=== PATIENT | female | born 1980 | race Caucasian/White ===

== ENCOUNTER 2016-04-12 19:02 | Emergency (ER) | payer MEDICAID, OTHER ==
[~2016-04-12] VITALS: Ht 154.9 cm; Wt 69.0 kg
[2016-04-12 19:14] VITALS: Ht 154.9 cm; Wt 69.0 kg
[2016-04-12 19:47] LABS: URINE BLOOD (Dip) POC 2+ (NEGATIVE)
[2016-04-12] MEDS ORDERED: ACETAMINOPHEN 325 MG TAB PO ONE (20:00)
--- NOTE | 2016-04-12 20:34 | RADRPT ---
PROCEDURE: US Lower extremity Venous. CLINICAL INDICATION: Left leg swelling TECHNIQUE: Multiple sonographic images of the left lower extremity deep venous system was obtained utilizing grayscale, color-flow, compressive sonography and doppler imaging with augmentation. The images were reviewed on a PACS workstation. COMPARISON: None. FINDINGS: There is normal compressibility and flow within the left common femoral, superficial femoral, building attendant ior tibial, peroneal and popliteal veins. RPTAT: AA IMPRESSION: No sonographic evidence for deep venous thrombosis. .Barney Jameson MD, MD Date Time Electronically viewed and signed by .Barney Jameson MD, on 04/12/2016 20:34 .S/
[2016-04-12 21:39] VITALS: BP 106/59; PULSE 73; RESP 18; TEMP 98.5
--- NOTE | 2016-04-12 21:42 | ERD ---
ER Documentation Chief Complaint Date/Time DATE: 04/12/16 TIME: 21:39 Chief Complaint right leg pain hx of dvt on lovenox sq daily, c/o back pain too 13 wks preg HPI Patient is a 35-year-old female with asthma who presents with headache and left- sided leg pain. She says that her headache started over one month ago. For the past 3 days she has had left-sided leg pain and left-sided back pain in the lower back. She called her primary doctor to go to the ER. She is 13 weeks . She has no vaginal bleeding however and no abdominal pain. She says that she is on Lovenox because she was told she has a "blood clot in her brain" . However she denies ever getting a CT scan of the brain or MRI of the brain to confirm this. She says that she has not had a DVT in her lower extremities either. She says that she is on Lovenox because the doctor told her that "she has a blood clot in her brain" and that this was found on a "blood test that they jesus from her arm". Upon review of old medical records this is the patient 's fifth visit to the ER since 2009. ROS All systems reviewed and are negative except as per history of present illness. Medications Home Meds Reported Medications [None] No Conflict Check 07/20/09 Allergies Allergies: Coded Allergies: No Known Allergies (Verified Allergy, Mild, 07/20/09) PMhx/Soc History of Surgery: Yes (RIGHT AXILLA CYST REMOVAL) Hx Neurological Disorder: No Hx Respiratory Disorders: No Hx Cardiac Disorders: No Hx Miscellaneous Medical Probl: No Hx Alcohol Use: No Hx Substance Use: No Hx Tobacco Use: No FmHx Family History: diabetes Physical Exam Vitals Vital Signs Date Time Temp Pulse Resp B/P Pulse Ox O2 Delivery O2 Flow Rate FiO2 04/12/16 19:14 97.7 76 20 114/68 100 Physical Exam Const: No acute distress Head: Atraumatic Eyes: Normal Conjunctiva ENT: Normal External Ears, Nose and Mouth. Neck: Full range of motion..~ No meningismus. Resp: Clear to auscultation bilaterally Cardio: Regular rate and rhythm, no murmurs Abd: Soft, non tender, non distended. Normal bowel sounds Skin: No petechiae or rashes Back: No midline or flank tenderness Ext: No obvious leg swelling on the left compared to the right Neur: Awake and alert, cranial nerves II through XII are intact, strength is 5 out of 5 in all 4 extremities, no slurred speech Psych: Normal Mood and Affect Results 24 hrs Laboratory Tests Test 04/12/16 19:47 Bedside Urine Blood 2+ Bedside Urine Glucose (UA) Negative Bedside Urine Ketones (LAB) Negative Bedside Urine Leukocyte Esterase (L Negative Bedside Urine Nitrite (LAB) Negative Bedside Urine Protein (LAB) Negative Bedside Urine pH (LAB) 5.5 Current Medications Medications (Trade) Dose Ordered Sig/Hill Route PRN Reason Start Time Stop Time Status Last Admin Dose Admin Acetaminophen (Tylenol Tab) 650 mg ONCE ONCE PO 04/12/16 20:00 04/12/16 20:01 DC 04/12/16 19:44 Procedures/MDM Left lower extremity ultrasound negative per radiology. Patient refused CT scan of the brain and she was concerned about the risk of radiation. Patient is a 35-year-old female presents with headache and left-sided leg pain. She has had headache for over one month. Her lower extremity ultrasound shows no sign of DVT to the left leg. I want to image the brain as she said that she has never had imaging of the brain and despite this she was placed on Lovenox by her clinic. I am unclear as to why they would have started her on Lovenox without a diagnosis of true DVT either in the lower extremities or some sort of blood clot in her brain. However she is refusing CT scan of the brain at this time. Given the fact that she is already taking Lovenox she should continue this but I did recommend very close follow-up with her primary doctor within 24-48 hours. I do not believe that she requires further workup or admission to the hospital at this time and her neurologic exam is normal. She has no abdominal pain or vaginal bleeding and I am not concerned about imaging her abdomen at this time. Departure Diagnosis: Primary Impression: Headache Headache type: unspecified Headache chronicity pattern: acute headache Intractability: not intractable Qualified Code: R51 - Acute nonintractable headache, unspecified headache type Additional Impression: Pain of left leg Condition: Fair Patient Instructions: Self-Care for Headaches, Possible Causes of Low Back or Leg Pain Referrals: [facility] Additional Instructions: Llame al doctor RALPH y iain megan ORIN PARA DENTRO DE 1-2 FERNANDEZ.Dgale a la secretaria que nosotros le instruimos hacer esta orin.Avise o llame si machado condicin se empeora antes de la orin. Regresa aqui si peor o no mejor. IZABEL TARIQ MD Apr 12, 2016 21:42
== END 2016-04-12 21:39 | disposition home or self-care (01) ==
LOC: FTE 19:02
DX: O99.89 Other specified diseases and conditions complicating pregnancy, childbirth and the puerperium (principal); R51 Headache; M79.605 Pain in left leg; Z79.01 Long term (current) use of anticoagulants; Z3A.13 13 weeks gestation of pregnancy
CPT/HCPCS: 81003; 93971

== ENCOUNTER 2016-07-19 20:37 | Outpatient (CLI) | payer MEDICAID ==
[~2016-07-19] VITALS: Ht 154.9 cm; Wt 73.1 kg
[~2016-07-19 20:37] MED LIST: ACET325T33 PO; DENIES
[2016-07-19 21:00] LABS: ADD UMIC YES; URINE BILIRUBIN (Dip) NEGATIVE (NEGATIVE); URINE BLOOD (Dip) TRACE (NEGATIVE); URINE COLOR LT. YELLOW (YELLOW); URINE GLUCOSE (Dip) NEGATIVE (NEGATIVE); URINE KETONES (Dip) NEGATIVE (NEGATIVE); URINE LEUKOCYTE ESTERASE (Dip) NEGATIVE (NEGATIVE); URINE NITRITE (Dip) NEGATIVE (NEGATIVE); URINE TOTAL PROTEIN (Dip) NEGATIVE (NEGATIVE); URINE UROBILINOGEN (Dip) 0.2 E.U./dL (0.1-1.0)
[2016-07-19 21:12] LABS: BACTERIA,URINE FEW; SQUAMOUS EPITHELIAL CELL,UR MODERATE
[2016-07-19 21:16] VITALS: Ht 154.9 cm; Wt 73.1 kg
[2016-07-19] MEDS ORDERED: PREN-93 PO (21:18)
[2016-07-19] MEDS ORDERED: ACET500C5 PO (21:18)
[2016-07-19] MEDS ORDERED: ENOX100D2 SC (21:18)
--- NOTE | 2016-07-19 21:43 | CONS ---
Date/Time of Note Date/Time of Note DATE: 07/19/16 TIME: 21:39 Assessment/Plan Assessment/Plan Additional Assessment/Plan No e/o ptl or preeclampsia. Discharge home with precautions. F/u with OB. Consultation Date/Type/Reason Admit Date/Time Hx of Present Illness at 27.4 weeks with abdominal/pelvic pain and cramping. Reports pain is constant, worse with walking. +dysuria. Also reports JENNINGS, tried taking tylenol. Denies LOF, VB. +FM. Getting PNC, c/b clotting disorder?, taking Lovenox and baby aspirin. Past Medical History Clotting disorder, asthma Past Surgical History Past Surgical Hx: no surgical history Social History Other Social History Denies habits. Exam/Review of Systems Exam Gen: NAD HEENT: NCAT CV: RRR Pulm: CTAB Abd: gravid, NT Back: no CVAT Ext: NT FHT: reassuring [place]: one UC Results Results 24 hrs Laboratory Tests Test 07/19/16 20:40 Urine Color LT. YELLOW Urine Clarity CLEAR Urine pH 6.0 Urine Specific [place] 1.010 Urine Ketones NEGATIVE Urine Nitrite NEGATIVE Urine Bilirubin NEGATIVE Urine Urobilinogen 0.2 E.U./dL Urine Leukocyte Esterase NEGATIVE Urine Microscopic RBC 2-5 Urine Microscopic WBC 0-2 Urine Squamous Epithelial Cells MODERATE Urine Bacteria FEW Urine Hemoglobin TRACE Urine Glucose NEGATIVE Urine Total Protein NEGATIVE SELENE MANCILLA Jul 19, 2016 21:43
== END 2016-07-19 21:54 | disposition home or self-care (01) ==
LOC: OBT 20:37 → L-D 20:37 → OBT 21:54
PROVIDERS: ATTEND Obstetrics & Gynecology
DX: O26.892 Other specified pregnancy related conditions, second trimester (principal); R10.9 Unspecified abdominal pain; R10.2 Pelvic and perineal pain; R25.2 Cramp and spasm; O99.112 Other diseases of the blood and blood-forming organs and certain disorders involving the immune mechanism complicating pregnancy, second trimester; D68.9 Coagulation defect, unspecified; Z3A.27 27 weeks gestation of pregnancy; O99.512 Diseases of the respiratory system complicating pregnancy, second trimester; J45.909 Unspecified asthma, uncomplicated
CPT/HCPCS: 81001; Z7500; 81003; G0463

== ENCOUNTER 2016-08-21 10:36 | Outpatient (CLI) | payer MEDICAID ==
[~2016-08-21] VITALS: Ht 152.4 cm; Wt 73.8 kg
[~2016-08-21 10:36] MED LIST changes: +ACET500C5 PO; +ENOX100D2 SC; +PREN-93 PO
[2016-08-21] MEDS ORDERED: ALBU18HF INHALATION (10:55)
[2016-08-21] MEDS ORDERED: ENOX40DI14 SC (10:55)
[2016-08-21] MEDS ORDERED: ASPI-664 PO (10:55)
[2016-08-21 10:56] VITALS: BP 101/55; PULSE 86; RESP 18; Ht 152.4 cm; Wt 73.8 kg
--- NOTE | 2016-08-21 11:20 | TRIAGE ---
OB Triage Datetime Report Generated by CPN: 08/21/2016 11:20 Datetime: 08/21/2016 10:49 Labor Evaluation Monitor Mode: External Heart Rate Monitor Mode: External US Datetime: 08/21/2016 10:45 Assessment Type: Triage Maternal Assessment Level of Consciousness: Fully Conscious DTR's/Clonus: DTRs 2+; No Clonus Headache: Denies Blurred Vision: No Respiratory Effort: Unlabored; Regular Rhythm; Equal Expansion Nausea/Vomiting: Denies RUQ Epigastric Pain: Denies Facial Edema: None Fall Risk Assessment History of Falling: (0) No Secondary Diagnosis: (0) No Ambulatory Aid: (0) Bedrest/Nurse Assist IV Therapy: (0) No Gait: (0) Normal/Bedrest/Immobile Mental Status: (0) Oriented to Own Ability Fall Score: 0 Fall Risk Score Definition: No Risk: No action required Datetime: 08/21/2016 10:43 Time of Arrival: 08/21/2016 10:28 EGA: 32.2 Arrived By: Ambulatory Arrived From: Office Chief Complaint: C/O SOB, CP Movement: Present Contractions: Denies/Absent Rupture of Membranes: Denies Vaginal Bleeding: None Vaginal Discharge: Denies Recent Sexual Intercouse: Denies Abdominal Trauma: Not Applicable Patient Complaints: Cough; Shortness of Breath Time Provider Notified: 08/21/2016 10:45 Provider Notified: [facility] Initial Plan: NST Datetime: 07/19/2016 20:58 Stage of : OB Triage Assessment Type: Triage Maternal Assessment Level of Consciousness: Fully Conscious Headache: Denies Blurred Vision: No Respiratory Effort: Unlabored; Regular Rhythm; Equal Expansion Breath Sounds, Left: Clear and Equal Breath Sounds, Right: Clear and Equal Nausea/Vomiting: Denies RUQ Epigastric Pain: Denies Lower Extremities Edema: None Upper Extremities Edema: None Facial Edema: None Fall Risk Assessment History of Falling: (0) No Secondary Diagnosis: (0) No Ambulatory Aid: (0) Bedrest/Nurse Assist IV Therapy: (0) No Gait: (0) Normal/Bedrest/Immobile Mental Status: (0) Oriented to Own Ability Fall Score: 0 Fall Risk Score Definition: No Risk: No action required Datetime: 07/19/2016 20:57 Time of Arrival: 07/19/2016 20:26 EGA: 27.4 Arrived By: Ambulatory Arrived From: Home Chief Complaint: ABD PAIN X2DAYS Movement: Present Contractions: Denies/Absent Rupture of Membranes: Denies Vaginal Discharge: Denies Recent Sexual Intercouse: Denies Abdominal Trauma: Not Applicable Patient Complaints: Other Time Provider Notified: 07/19/2016 20:35 Provider Notified: [facility] Initial Plan: EFM,UA Datetime: 07/19/2016 20:52 Temperature Route: Oral Datetime: 07/19/2016 20:30 Stage of : OB Triage
[2016-08-21] MEDS ORDERED: ACET325T33 PO (12:33)
[2016-08-21] MEDS ORDERED: PRED20TA PO (12:33)
[2016-08-21] MEDS ORDERED: UDROBDM PO (12:33)
== END 2016-08-21 11:30 | disposition home or self-care (01) ==
LOC: OBT 10:36 → L-D 10:37 → OBT 11:30
PROVIDERS: ATTEND Obstetrics & Gynecology
DX: O26.893 Other specified pregnancy related conditions, third trimester (principal); R07.9 Chest pain, unspecified; R06.02 Shortness of breath; O09.523 Supervision of elderly multigravida, third trimester; Z3A.32 32 weeks gestation of pregnancy
CPT/HCPCS: G0463

== ENCOUNTER 2016-08-21 11:41 | Emergency (ER) | payer MEDICAID ==
[~2016-08-21] VITALS: Ht 157.5 cm; Wt 73.0 kg
[~2016-08-21 11:41] MED LIST changes: +ALBU18HF INHALATION; +ASPI-664 PO; +ENOX40DI14 SC
[2016-08-21 11:45] VITALS: Ht 157.5 cm; Wt 73.0 kg
[2016-08-21] MEDS ORDERED: ALBUTEROL 0.5% (NEB) 2.5 MG/0.5 ML AMP INH STA (12:26)
[2016-08-21] MEDS ORDERED: ACETAMINOPHEN 325 MG TAB PO ONE (12:30)
[2016-08-21] MEDS ORDERED: UDROBDM PO (12:33)
[2016-08-21] MEDS ORDERED: ACET325T33 PO (12:33)
[2016-08-21] MEDS ORDERED: PRED20TA PO (12:33)
--- NOTE | 2016-08-21 12:40 | ERD ---
ER Documentation Chief Complaint Date/Time DATE: 08/21/16 TIME: 12:35 Chief Complaint wheezing yesterday, cough today, cleared by ob triage, 32wks preg HPI 36-year-old female with a history of asthma presents emergency department for a 1 day history of cough, shortness of breath, and wheezing. Patient is currently 32 weeks . Patient denies any fever, chills, nausea, vomiting , abdominal pain or pelvic cramping. Patient denies any dysuria, vaginal discharge or bleeding. Patient states she is attempted to treat her symptoms with albuterol inhaler at home with only mild relief. Patient was cleared by OB in triage prior to arrival. ROS All systems reviewed and are negative except as per history of present illness. Medications Home Meds Active Scripts Prednisone* (Prednisone*) 20 Mg Tab, 40 MG PO DAILY for 4 Days, TAB Prov:TEZ GRIFFITH PA-C 08/21/16 Acetaminophen* (Tylenol*) 325 Mg Tablet, 650 MG PO Q4H Y for MILD PAIN LEVEL 1- 3 for 7 Days, TAB Prov:TEZ GRIFFITH PA-C 08/21/16 Guaifenesin-Dextromethorphan* (Robitussin* DM) 100MG/10MG/5ML Syrup, 10 ML PO Q6H Y for COUGH for 7 Days, ML Prov:TEZ GRIFFITH PA-C 08/21/16 Reported Medications Albuterol Sulfate* (Ventolin HFA*) 18 Gm Hfa.aer.ad, 2 PUFF INHALATION Q4H, #1 INHALER 08/21/16 Aspirin* (Aspirin* EC) 81 Mg Tablet.dr, 81 MG PO DAILY, TAB 08/21/16 Enoxaparin Sodium* (Lovenox*) 40 Mg/0.4 Ml Syringe, 40 MG SC DAILY, SYR 08/21/16 Vit No.124/Iron/FA ( Vitamin Tablet) 1 Each Tablet, 1 EACH PO, TAB 07/19/16 Discontinued Reported Medications Acetaminophen* (Tylophen*) 500 Mg Capsule, 500 MG PO Q6H Y for HEADACHE, TAB 07/19/16 Enoxaparin Sodium (Enoxaparin Sodium) 100 Mg/1 Ml Syringe, 100 MG SC Q24H, SYR 07/19/16 [Denies] No Conflict Check 07/21/10 [None] No Conflict Check 07/20/09 Discontinued Scripts Acetaminophen* (Tylenol*) 325 Mg Tablet, 650 MG PO Q6H Y for PAIN AND OR ELEVATED TEMP, #30 TAB Prov:JULIANNE RICHARDS PA-C 09/25/15 Allergies Allergies: Coded Allergies: No Known Allergies (Verified Allergy, Mild, 07/20/09) No Known Drug Allergy (Verified Allergy, Unknown, 07/23/16) PMhx/Soc History of Surgery: Yes (RIGHT AXILLA CYST REMOVAL) Anesthesia Reaction: No Hx Neurological Disorder: No Hx Respiratory Disorders: No Hx Cardiac Disorders: No Hx Psychiatric Problems: No Hx Miscellaneous Medical Probl: No Hx Alcohol Use: No Hx Substance Use: No Hx Tobacco Use: No Physical Exam Vitals Vital Signs Date Time Temp Pulse Resp B/P Pulse Ox O2 Delivery O2 Flow Rate FiO2 08/21/16 12:50 89 20 96 21 08/21/16 11:45 98.3 89 20 102/58 98 Physical Exam Const: Well-developed, well-nourished, no acute distress Head: Atraumatic Eyes: Normal Conjunctiva ENT: Normal External Ears, Nose and Mouth. Posterior pharynx without erythema or tonsillar swelling bilaterally. No exudate present. Bilateral tympanic membranes nonerythematous, nonbulging Neck: Full range of motion..~ No meningismus. Resp: Active dry cough. Clear to auscultation bilaterally, no wheezing, rales , rhonchi Cardio: Regular rate and rhythm, no murmurs Skin: No petechiae or rashes Back: No midline or flank tenderness Ext: No cyanosis, or edema Neur: Awake and alert Psych: Normal Mood and Affect Results 24 hrs Current Medications Medications (Trade) Dose Ordered Sig/Hill Route PRN Reason Start Time Stop Time Status Last Admin Dose Admin Albuterol (Proventil 0.5% (Neb)) 5 mg ONCE STAT INH 08/21/16 12:26 08/21/16 12:27 DC 08/21/16 12:47 Acetaminophen (Tylenol Tab) 650 mg ONCE ONCE PO 08/21/16 12:30 08/21/16 12:31 DC 08/21/16 12:43 Procedures/MDM 36-year-old female, currently 32 weeks , presents emergency department for complaints of wheezing, cough, and shortness of breath. Patient with a history of asthma, normally controlled with albuterol inhaler. Upon arrival patient was afebrile, non-tachycardic, normotensive and non-hypoxic. Physical exam without significant respiratory distress. There is no wheezing, rhonchi, rales upon auscultation of the lungs. Patient did exhibit a dry cough during exam. Patient received albuterol nebulizer treatment in the emergency department. Reassessment after neb treatment completed and symptoms improved. Patient history and physical consistent with mild presentation of acute asthma exacerbation and cough. Risks and benefits associated with prednisone treatment at 32 weeks gestation discussed with patient and advised to caution if unnecessary. Patient to continue Tylenol and Robitussin for cough symptoms. At this time a low suspicion for strep pharyngitis, otitis media, pneumonia, severe asthma exacerbation, systemic bacterial illness or sepsis. Patient without symptoms of lower abdominal pain, cramping, or bleeding. Patient was cleared by OB prior to arrival to the ER. Based on patient's history of present illness and physical examination the decision was made to discharge. The patient was re-evaluated after ED treatment and stabilizing measures, and symptoms have improved. There is no evidence of life threatening injuries or illnesses at this time. On re-examination, patient resting in no distress, stable vital signs, reports feeling better and safe for discharge with outpatient follow up with PMD in 1-2 days. Patient given return precautions. Departure Diagnosis: Primary Impression: Asthma exacerbation Additional Impression: Cough Condition: Good Patient Instructions: Uri, Viral, No Abx (Adult) Additional Instructions: Call your primary care doctor TOMORROW for an appointment during the next 1-2 days.See the doctor sooner or return here if your condition worsens before your appointment time. TEZ GRIFFITH PA-C August 21, 2016 12:40
== END 2016-08-21 13:36 | disposition home or self-care (01) ==
LOC: FTE 11:41
DX: O99.513 Diseases of the respiratory system complicating pregnancy, third trimester (principal); J45.901 Unspecified asthma with (acute) exacerbation; R05 Cough; Z3A.32 32 weeks gestation of pregnancy; Z79.84 Long term (current) use of oral hypoglycemic drugs
CPT/HCPCS: 94664; Z7502; Z7610

== ENCOUNTER 2016-08-25 11:22 | Outpatient (CLI) | payer MEDICAID ==
--- NOTE | 2016-08-21 12:21 | QN ---
Documentation Comment 36-year-old G 10 P5 with IUP at 32 weeks and 2 days with care at [facility] presented with complaint of chest pain and cough and shortness of breath since yesterday. Patient care at [facility]. Antepartum course was complicated by history of asthma with worsening of symptoms during . Patient denies using any inhaler throughout the . Yesterday due to shortness of breath and worsening of symptoms a started using inhaler that did not help with the symptoms. 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 She was previously on baby aspirin as well which she stopped 3 weeks ago due to nausea. She was noted to be 96% saturated on room air. She denies any fever. Reports some chills. She also complains of cough. She denies any leaking of fluid, vaginal bleeding or decreased movement. She denies any abdominal pain or uterine cramps. Past OB history significant for history of SAB 4. Diagnosed with anti-beta-2 glycoprotein Physical examination: General appearance, alert and oriented 4. Patient appears to be in mild to moderate distress. Lungs: Clear to auscultation bilaterally CV: RRR Oxygen saturation on room air: 96% Abdomen: Gravid, soft no rebound tenderness, fundal height consistent with gestational age,. No uterine tenderness. No CVA tenderness Extremities: No calf tenderness, no click, no edema no cords palpable NST: Category 1 tracing IUP at Assessment: 32 weeks and 2 days History of SAB 4 diagnosed with, anti-beta-2 glycoprotein. On Lovenox. Stopped baby aspirin due to nausea History of asthma, worsened during . Not taking medication Shortness of breath and chest pain and cough Cannot rule out PE due to complications, anti-beta-2 glycoprotein Patient will be sent to emergency room for further evaluation rule out PE, Consider VQ scan versus CT angiogram, to rule out for PE if that deemed necessary by ED attending Optimization of her asthma during with using inhaler and control of symptoms discussed with the patient Risk of poorly controlled asthma including risk of IUGR, IUFD discussed the patient If discharged from the hospital needs to have a follow-up within 1-2 days with her primary OB clinic Patient verbalized understanding. LAURA NGUYEN MD August 21, 2016 12:21
[~2016-08-25] VITALS: Ht 152.4 cm; Wt 73.4 kg
[~2016-08-25 11:22] MED LIST changes: -ACET500C5 PO; -DENIES; -ENOX100D2 SC; +PRED20TA PO; +UDROBDM PO
[2016-08-25 11:27] VITALS: Ht 152.4 cm; Wt 73.4 kg
[2016-08-25 11:28] VITALS: BP 120/71; PULSE 104; RESP 22
--- NOTE | 2016-08-25 13:29 | RADRPT ---
PROCEDURE: US OB biophysical profile. CLINICAL INDICATION: decreased movements, leaking fluid TECHNIQUE: Multiple sonographic images of the pelvis were obtained. The images were reviewed on a PACS workstation. COMPARISON: No prior studies are available for comparison. FINDINGS: There is a single viable intrauterine gestation. Cardiac activity is present with 128 beats per min [place]. There is a vertex presentation. The placenta is anterior. There is no evidence of placental abruption. There is a normal amount of amniotic fluid with an TREY = 13.8 cm. Biophysical profile: movement 2/2 tone 2/2. breathing 2/2 TREY 2/2 Total 11/05 RPTAT: AA . IMPRESSION: Normal biophysical profile. . .Barney Jameson MD, Date Time Electronically viewed and signed by .Barney Jameson MD, MD on 08/25/2016 13:29 .S/
--- NOTE | 2016-08-25 13:44 | TRIAGE ---
OB Triage Datetime Report Generated by CPN: 08/25/2016 13:43 Datetime: 08/25/2016 11:48 Labor Evaluation Frequency: NONE AT THIS TIME Pattern: Normal: <= 5 Contractions in 10 Minutes Heart Rate FHR Baseline Rate: 150 Monitor Mode: External US FHR Baseline Changes: No Baseline Change Variability: Moderate 6-25 bpm Accelerations: 15X15 Decelerations: None Category: Category I Pain Assessment Pain Scale: 4 Pain Presence: Constant Pain Type: Pressure Pain Location: Abdomen Datetime: 08/25/2016 11:33 Time of Arrival: 08/25/2016 11:15 EGA: 32.6 Arrived By: Ambulatory Arrived From: Home Chief Complaint: SOB LEAKING FLUID Movement: Present Contractions: Denies/Absent Rupture of Membranes: Unsure Vaginal Bleeding: None Vaginal Discharge: Denies Recent Sexual Intercouse: Denies Abdominal Trauma: Not Applicable Patient Complaints: Other Time Provider Notified: 08/25/2016 11:34 Provider Notified: DR DAWSON Initial Plan: EFM,CALL DR DAWSON Datetime: 08/25/2016 11:31 Maternal Assessment Level of Consciousness: Fully Conscious DTR's/Clonus: DTRs 2+; No Clonus Headache: Denies Blurred Vision: No Breath Sounds, Left: Clear and Equal Breath Sounds, Right: Clear and Equal Nausea/Vomiting: Denies RUQ Epigastric Pain: Denies Facial Edema: None Temperature Route: Axillary Fall Risk Assessment History of Falling: (0) No Secondary Diagnosis: (0) No Ambulatory Aid: (0) Bedrest/Nurse Assist IV Therapy: (0) No Gait: (0) Normal/Bedrest/Immobile Mental Status: (0) Oriented to Own Ability Fall Score: 0 Fall Risk Score Definition: No Risk: No action required Datetime: 08/25/2016 11:25 Maternal Assessment Level of Consciousness: Fully Conscious DTR's/Clonus: DTRs 2+ Headache: Denies Blurred Vision: No Nausea/Vomiting: Denies RUQ Epigastric Pain: Denies Facial Edema: None Labor Evaluation Frequency: NONE AT THIS TIME Pattern: Normal: <= 5 Contractions in 10 Minutes Heart Rate FHR Baseline Rate: 140 Monitor Mode: External US FHR Baseline Changes: No Baseline Change Variability: Moderate 6-25 bpm Accelerations: 15X15 Decelerations: None Category: Category I Pain Assessment Pain Scale: 4 Pain Presence: Constant Pain Type: Pressure Pain Location: Abdomen Datetime: 08/21/2016 11:22 Stage of : OB Triage Maternal Assessment Level of Consciousness: Fully Conscious Labor Evaluation Frequency: NONE Monitor Mode: External Resting Tone [place]: Relaxed Heart Rate FHR Baseline Rate: 135 Monitor Mode: External US Variability: Moderate 6-25 bpm Accelerations: 15X15 Decelerations: None Pain Assessment Pain Scale: 0 Pain Presence: None/Denies Pain Goal: 3 Vaginal Exam Membrane Status: Intact Vaginal Bleeding: None Datetime: 08/21/2016 10:45 Fall Score: 0 Fall Risk Score Definition: No Risk: No action required Datetime: 08/21/2016 10:43 EGA: 32.2 Datetime: 07/19/2016 20:58 Fall Score: 0 Fall Risk Score Definition: No Risk: No action required Datetime: 07/19/2016 20:57 EGA: 27.4
[2016-08-25] MEDS ORDERED: ALBU2.5V3 NEB (18:04)
== END 2016-08-25 13:40 | disposition home or self-care (01) ==
LOC: OBT 11:22 → L-D 11:23 → OBT 13:40
PROVIDERS: ATTEND Obstetrics & Gynecology
DX: O26.893 Other specified pregnancy related conditions, third trimester (principal); R06.02 Shortness of breath; J45.909 Unspecified asthma, uncomplicated; R07.9 Chest pain, unspecified; O09.523 Supervision of elderly multigravida, third trimester; Z3A.32 32 weeks gestation of pregnancy
CPT/HCPCS: 76818; 84112

== ENCOUNTER 2016-08-25 13:55 | Inpatient (IN) | payer MEDICAID ==
[~2016-08-25] VITALS: Ht 162.6 cm; Wt 73.5 kg
[2016-08-25] MEDS ORDERED: ALBUTEROL 0.083% (NEB) 2.5 MG/3 ML AMP HHN STA (14:29)
[2016-08-25] MEDS ORDERED: IPRATROPIUM (NEB) 0.5 MG/2.5 ML AMP HHN ONE (14:30)
--- NOTE | 2016-08-25 15:44 | ERD ---
ER Documentation Chief Complaint Date/Time DATE: 08/25/16 TIME: 15:37 Chief Complaint pt bib family with c/o sob, pt has asthma, cleared by OB needs tx HPI Patient is a 36-year-old female with a past medical history of antiphospholipid syndrome currently on Lovenox who is who is approximately 33 weeks who presents to the ED with recurrent short of breath, cough and difficulty breathing on and off for the last 2 weeks. Patient has gone to multiple ERs and clinics for similar complaints. She states that she has used her albuterol inhaler and machine at home without improvement. She states that she was here on 08/21/16 and received a breathing treatment and prednisone. She finished her 4 days of prednisone however she states that her symptoms are exactly the same. Patient has been taking Lovenox for the last 7 months. She denies leg pain or leg swelling. ROS All systems reviewed and are negative except as per history of present illness. Medications Home Meds Active Scripts Prednisone* (Prednisone*) 20 Mg Tab, 40 MG PO DAILY for 4 Days, TAB Prov:TEZ GRIFFITH PA-C 08/21/16 Acetaminophen* (Tylenol*) 325 Mg Tablet, 650 MG PO Q4H Y for MILD PAIN LEVEL 1- 3 for 7 Days, TAB Prov:TEZ GRIFFITH PA-C 08/21/16 Guaifenesin-Dextromethorphan* (Robitussin* DM) 100MG/10MG/5ML Syrup, 10 ML PO Q6H Y for COUGH for 7 Days, ML Prov:TEZ GRIFFITH PA-C 08/21/16 Reported Medications Albuterol Sulfate* (Ventolin HFA*) 18 Gm Hfa.aer.ad, 2 PUFF INHALATION Q4H, #1 INHALER 08/21/16 Aspirin* (Aspirin* EC) 81 Mg Tablet.dr, 81 MG PO DAILY, TAB 08/21/16 Enoxaparin Sodium* (Lovenox*) 40 Mg/0.4 Ml Syringe, 40 MG SC DAILY, SYR 08/21/16 Vit No.124/Iron/FA ( Vitamin Tablet) 1 Each Tablet, 1 EACH PO, TAB 07/19/16 Discontinued Reported Medications Acetaminophen* (Tylophen*) 500 Mg Capsule, 500 MG PO Q6H Y for HEADACHE, TAB 07/19/16 Enoxaparin Sodium (Enoxaparin Sodium) 100 Mg/1 Ml Syringe, 100 MG SC Q24H, SYR 07/19/16 [Denies] No Conflict Check 07/21/10 [None] No Conflict Check 07/20/09 Discontinued Scripts Acetaminophen* (Tylenol*) 325 Mg Tablet, 650 MG PO Q6H Y for PAIN AND OR ELEVATED TEMP, #30 TAB Prov:JULIANNE RICHARDS PA-C 09/25/15 Allergies Allergies: Coded Allergies: No Known Allergies (Verified Allergy, Mild, 07/20/09) No Known Drug Allergy (Verified Allergy, Unknown, 07/23/16) PMhx/Soc Medical and Surgical Hx: pt denies Surgical Hx History of Surgery: No Anesthesia Reaction: No Hx Neurological Disorder: No Hx Respiratory Disorders: Yes (Asthma) Hx Cardiac Disorders: No Hx Psychiatric Problems: No Hx Miscellaneous Medical Probl: Yes (Antiphospholipid syndrome) Hx Alcohol Use: No Hx Substance Use: No Hx Tobacco Use: No Smoking Status: Never smoker FmHx Family History: No coronary disease, No diabetes, No other Physical Exam Vitals Vital Signs Date Time Temp Pulse Resp B/P Pulse Ox O2 Delivery O2 Flow Rate FiO2 08/25/16 14:36 79 19 96 21 08/25/16 14:01 98.3 64 18 132/74 98 Physical Exam GENERAL: Well-developed, well-nourished female. Appears in mild distress HEAD: Normocephalic, atraumatic. EYES: Pupils are equally reactive bilaterally. EOMs grossly intact. No conjunctival erythema. ENT: Moist mucous membranes. No uvula deviation. No kissing tonsils. No exudates. NECK: Supple. No lymphadenopathy or thyromegaly. No meningismus. negative kernig. negative brudinski. LUNG: Clear to auscultation bilaterally. No rhonchi, wheezing, rales or coarse breath sounds. HEART: Regular rate and rhythm. No murmurs, rubs or gallops. Extremities: Equal pulses bilaterally. No peripheral clubbing, cyanosis or edema. No unilateral leg swelling. NEUROLOGIC: Alert and oriented. Moving all four extremities. 5/5 strength in all extremities. Normal speech. Steady gait. SKIN: Normal color. Warm and dry. No rashes or lesions. Capillary refill < 2 seconds Results 24 hrs Current Medications Medications (Trade) Dose Ordered Sig/Hill Route PRN Reason Start Time Stop Time Status Last Admin Dose Admin Albuterol (Proventil 0.083% (Neb)) 5 mg ONCE STAT N 08/25/16 14:29 08/25/16 14:32 DC 08/25/16 14:35 Ipratropium Pepin (Atrovent 0.02% (Neb)) 0.5 mg ONCE ONCE N 08/25/16 14:30 08/25/16 14:32 DC 08/25/16 14:35 Procedures/MDM ER COURSE: I kept the patient and/or family informed of laboratory and diagnostic imaging results throughout the emergency room course. PROCEDURES RT consult. Albuterol, Atrovent. Tolerated well with no improvement in symptoms. MEDICAL DECISION MAKING: This is a 36-year-old female who is with a past medical history of antiphospholipid syndrome who presents to the ED with chest pressure, cough and shortness of breath on and off for the last 2 weeks. . Vital signs were reviewed. Patient is afebrile. Patient is not hypoxic. Patient is not toxic or ill-appearing. Her pulse is 66 with an oxygen saturation of 98. I consulted with Dr. BRADY regarding this patient came to examine patient at bedside. Patient does have short of breath. Patient will stay in the hospital. Patient will be admitted to the hospital for better management of her symptoms. I consulted with Dr. Carias who will be accepting the patient in the ED 1. Patient is stable at transfer to ED 1. Pain was explained to patient. Departure Diagnosis: Primary Impression: Cough Condition: SOCORRO Ramirez PA-C August 25, 2016 15:44
[2016-08-25] MEDS ORDERED: ACETAMINOPHEN 325 MG TAB PO PRN (17:30)
[2016-08-25] MEDS ORDERED: ONDANSETRON 4 MG INJ IV PRN (17:30)
[2016-08-25] MEDS ORDERED: ALBU2.5V3 NEB (18:04)
[2016-08-25 18:54] VITALS: BP 110/67; PULSE 90; PULSE 91; Ht 162.6 cm; Wt 73.5 kg
[2016-08-25 19:31] VITALS: BP 110/63; RESP 16
[2016-08-25] MEDS ORDERED: METHYLPREDNISOLONE 40 MG INJ IV ONE (20:30)
[2016-08-25] MEDS ORDERED: ACETAMINOPHEN 500 MG TAB PO PRN (20:30)
[2016-08-25 20:34] VITALS: PULSE 89
[2016-08-25] MEDS: ENOXAPARIN 40 MG/0.4 ML SYG SC SCH (21:38)
[2016-08-25 23:46] VITALS: BP 109/68; RESP 16
[2016-08-26] VITALS (11 sets, daily range): BP systolic 100–136; BP diastolic 56–65; PULSE 71–90; RESP 16–18
[2016-08-26 06:47] LABS: ADD SCAN DIFF NO
[2016-08-26 06:53] LABS: BASOPHILS % 0.1 % (0.0-2.0); EOSINOPHILS % 0.4 % (0.0-7.0); HEMATOCRIT 30.8 % (37.0-47.0); LYMPHOCYTES # 1.2 10^3/ul (0.8-2.9); MEAN CORPUSCULAR HEMOGLOBIN 30.7 pg (29.0-33.0); MEAN CORPUSCULAR HGB CONC 32.5 g/dl (32.0-37.0); MEAN CORPUSCULAR VOLUME 94.5 fl (82.0-101.0); MEAN PLATELET VOLUME 10.8 fl (7.4-10.4); MONOCYTE # 0.2 10^3/ul (0.3-0.9); MONOCYTES % 2.7 % (0.0-11.0); NEUTROPHIL # 6.7 10^3/ul (1.6-7.5); NEUTROPHILS % 80.9 % (39.0-77.0); PLATELET COUNT 275 10^3/UL (140-415); RED BLOOD COUNT 3.26 10^6/ul (4.20-5.40); RED CELL DISTRIBUTION WIDTH 14.3 % (11.5-14.5); WHITE BLOOD COUNT 8.2 10^3/ul (4.8-10.8)
[2016-08-26 07:15] LABS: POTASSIUM 4.1 mmol/L (3.5-5.1)
[2016-08-26 07:16] LABS: CREATININE 0.55 mg/dl (0.44-1.00)
[2016-08-26 07:17] LABS: ALBUMIN/GLOBULIN RATIO 0.83; BILIRUBIN,INDIRECT 0.2 mg/dl (0-1.1); BILIRUBIN,TOTAL 0.2 mg/dl (0.2-1.3); TOTAL PROTEIN 6.6 g/dl (6.1-8.1)
[2016-08-26 07:18] LABS: CALCIUM 8.6 mg/dl (8.4-10.2); MAGNESIUM 1.9 mg/dl (1.7-2.5); PHOSPHORUS 4.6 mg/dl (2.5-4.9)
[2016-08-26] MEDS: ALBUTEROL/IPRATROPIUM (NEB) 3 ML AMP HHN PRN ×2 (07:48→21:13)
[2016-08-26] MEDS: MULTIVIT/MIN/FOLATE/IRON/PREN TAB PO SCH (09:41)
[2016-08-26] MEDS: ENOXAPARIN 40 MG/0.4 ML SYG SC SCH (10:15)
--- NOTE | 2016-08-26 17:21 | PN ---
Date/Time of Note Date/Time of Note DATE: 08/26/16 TIME: 17:13 Assessment/Plan VTE Prophylaxis VTE Prophylaxis Intervention: heparin Lines/Catheters IV Catheter Type (from Nrs): Saline Lock Urinary Cath still in place: No Assessment/Plan Assessment/Plan 36 yo F with 1. Acute asthma exacerbation 2. who is approximately 33 weeks 1 day 3. Antiphospholipid antibody syndrome 4. R sided inguinal pain PLAN: * Change bronchodilator therapy to scheduled * add q6 tylenol for inguinal pain * Treat constipation * supportive care * resume home aspirin Exam/Review of Systems Vital Signs Vitals Vital Signs Date Time Temp Pulse Resp B/P Pulse Ox O2 Delivery O2 Flow Rate FiO2 08/26/16 16:12 90 08/26/16 15:16 98.6 18 103/56 96 08/26/16 07:50 21 08/25/16 18:54 Room Air Intake and Output 08/25/16 08/25/16 08/26/16 14:59 22:59 06:59 Intake Total 450 ml Balance 450 ml Exam Constitutional: alert, oriented Head: normocephalic Neck: non-tender Respiratory: clear to auscultation, diminished breath sounds, other (hacking cough), No wheezing Cardiovascular: nl pulses, regular rate and rhythm, No murmurs/extra sounds Gastrointestinal: other (gravid uterus with tenderness on palpation R inguinal region) Extremities: No edema Neurological: nl mental status, nl speech Results Result Diagram: 08/26/16 0615 08/26/16 0615 Results 24 hrs Laboratory Tests Test 08/26/16 06:15 White Blood Count 8.2 Red Blood Count 3.26 #L Hemoglobin 10.0 #L Hematocrit 30.8 #L Mean Corpuscular Volume 94.5 Mean Corpuscular Hemoglobin 30.7 Mean Corpuscular Hemoglobin Concent 32.5 Red Cell Distribution Width 14.3 Platelet Count 275 Mean Platelet Volume 10.8 #H Neutrophils % 80.9 H Lymphocytes % 15.0 Monocytes % 2.7 Eosinophils % 0.4 Basophils % 0.1 Nucleated Red Blood Cells % 0.0 Neutrophils # 6.7 Lymphocytes # 1.2 Monocytes # 0.2 L Eosinophils # 0.0 Basophils # 0.0 Nucleated Red Blood Cells # 0.0 Sodium Level 138 Potassium Level 4.1 Chloride Level 113 H Carbon Dioxide Level 22 Anion Gap 7 L Blood Urea Nitrogen 9 Creatinine 0.55 Glucose Level 99 Calcium Level 8.6 Phosphorus Level 4.6 Magnesium Level 1.9 Total Bilirubin 0.2 Direct Bilirubin 0.00 Indirect Bilirubin 0.2 Aspartate Amino Transf (AST/SGOT) 22 Alanine Aminotransferase (ALT/SGPT) 31 Alkaline Phosphatase 103 Total Protein 6.6 Albumin 3.0 L Globulin 3.60 H Albumin/Globulin Ratio 0.83 Medications Medications Current Medications Acetaminophen (Tylenol Tab) 500 mg Q6H PRN PO PAIN AND OR ELEVATED TEMP Last administered on 08/25/16 21:32; Admin Dose 500 MG; Start 08/25/16 at 20:30 Prenat Multivit/ [place]/Iron/Folic Ac ( S) 1 tab DAILY PO Last administered on 08/26/16 09:41; Admin Dose 1 TAB; Start 08/26/16 at 09:00 Enoxaparin Sodium (Lovenox) 40 mg DAILY SC Last administered on 08/26/16 10:15 ; Admin Dose 40 MG; Start 08/25/16 at 20:30 Acetaminophen (Tylenol Tab) 650 mg Q6H PO ; Start 08/26/16 at 17:30; Status UNV Docusate Sodium (Colace) 100 mg BID PO ; Start 08/26/16 at 21:00; Status UNV Bisacodyl (Dulcolax) 10 mg ONCE ONCE PO ; Start 08/26/16 at 17:30; Stop at 17:31; Status UNV Polyethylene Glycol (Miralax) 17 gm DAILY PO ; Start 08/27/16 at 09:00; Status UNV SANDRA HARDEN August 26, 2016 17:21
[2016-08-26] MEDS ORDERED: BISACODYL (EC) 5 MG TAB PO ONE (17:30)
--- NOTE | 2016-08-26 17:52 | RADRPT ---
PROCEDURE: XR Chest. CLINICAL INDICATION: asthma TECHNIQUE: Single frontal view of the chest was obtained COMPARISON: None FINDINGS: The heart and mediastinum are within normal limits. The lungs are clear. There is no pleural effusion or pneumothorax. IMPRESSION: No definite abnormalities are identified. RPTAT:AAJJ Physician Nimisha Date Time Electronically viewed and signed by Roc Kelly Physician on 08/26/2016 17:52 BANDAR/
[2016-08-26] MEDS: ACETAMINOPHEN 325 MG TAB PO SCH (18:07)
[2016-08-26] MEDS: CEFTRIAXONE 1 GM/50 ML (PMX) 50 ML IVPB SCH (18:08)
[2016-08-26] MEDS: ALBUTEROL 0.083% (NEB) 2.5 MG/3 ML AMP HHN SCH (21:00)
[2016-08-26] MEDS: DOCUSATE SODIUM 100 MG CAP PO SCH (21:08)
[2016-08-26] MEDS: AZITHROMYCIN 500MG/NS (PMX) 250 ML IVPB SCH (21:09)
[2016-08-26 21:57] LABS: ADD UMIC YES; URINE BILIRUBIN (Dip) NEGATIVE (NEGATIVE); URINE BLOOD (Dip) TRACE (NEGATIVE); URINE COLOR LT. YELLOW (YELLOW); URINE GLUCOSE (Dip) NEGATIVE (NEGATIVE); URINE KETONES (Dip) NEGATIVE (NEGATIVE); URINE LEUKOCYTE ESTERASE (Dip) NEGATIVE (NEGATIVE); URINE NITRITE (Dip) NEGATIVE (NEGATIVE); URINE TOTAL PROTEIN (Dip) NEGATIVE (NEGATIVE); URINE UROBILINOGEN (Dip) 0.2 E.U./dL (0.1-1.0)
[2016-08-26 22:03] LABS: BACTERIA,URINE RARE; URINE RBCS 0-2 /HPF (0)
[2016-08-27 00:39] VITALS: BP 110/68; RESP 17
[2016-08-27] MEDS: ALBUTEROL 0.083% (NEB) 2.5 MG/3 ML AMP HHN SCH ×6 (01:00→20:38)
[2016-08-27 03:32] VITALS: BP 99/60; RESP 14
[2016-08-27] MEDS: ACETAMINOPHEN 325 MG TAB PO SCH ×4 (05:01→18:56)
[2016-08-27 06:14] LABS: ADD SCAN DIFF NO
[2016-08-27 06:20] LABS: BASOPHILS % 0.1 % (0.0-2.0); EOSINOPHILS # 0.2 10^3/ul (0.0-0.5); EOSINOPHILS % 2.9 % (0.0-7.0); HEMATOCRIT 29.7 % (37.0-47.0); HEMOGLOBIN 9.6 g/dl (12.0-16.0); LYMPHOCYTES # 1.6 10^3/ul (0.8-2.9); MEAN CORPUSCULAR HEMOGLOBIN 30.7 pg (29.0-33.0); MEAN CORPUSCULAR HGB CONC 32.3 g/dl (32.0-37.0); MEAN CORPUSCULAR VOLUME 94.9 fl (82.0-101.0); MEAN PLATELET VOLUME 10.5 fl (7.4-10.4); MONOCYTE # 0.3 10^3/ul (0.3-0.9); MONOCYTES % 4.8 % (0.0-11.0); NEUTROPHIL # 4.6 10^3/ul (1.6-7.5); NEUTROPHILS % 67.9 % (39.0-77.0); PLATELET COUNT 273 10^3/UL (140-415); RED BLOOD COUNT 3.13 10^6/ul (4.20-5.40); RED CELL DISTRIBUTION WIDTH 14.3 % (11.5-14.5); WHITE BLOOD COUNT 6.8 10^3/ul (4.8-10.8)
[2016-08-27 06:30] LABS: POTASSIUM 3.8 mmol/L (3.5-5.1)
[2016-08-27 06:33] LABS: CREATININE 0.54 mg/dl (0.44-1.00)
[2016-08-27 06:34] LABS: CALCIUM 8.4 mg/dl (8.4-10.2)
[2016-08-27 07:23] VITALS: BP 105/60; RESP 16
[2016-08-27] MEDS ORDERED: morphine 2 MG INJ IV ONE (09:38)
[2016-08-27] MEDS: DOCUSATE SODIUM 100 MG CAP PO SCH ×2 (09:52→21:08)
[2016-08-27] MEDS: POLYETHYLENE GLYCOL 17 GM PACKET PO SCH (09:52)
[2016-08-27] MEDS: MULTIVIT/MIN/FOLATE/IRON/PREN TAB PO SCH (09:52)
[2016-08-27] MEDS: ASPIRIN (EC) 81 MG TAB PO SCH (09:52)
[2016-08-27] MEDS: ENOXAPARIN 40 MG/0.4 ML SYG SC SCH (10:05)
--- NOTE | 2016-08-27 12:35 | PN ---
Date/Time of Note Date/Time of Note DATE: 08/27/16 TIME: 12:17 Assessment/Plan VTE Prophylaxis VTE Prophylaxis Intervention: LMWH Lines/Catheters [facility] Saline Lock Urinary Cath still in place: No Assessment/Plan Assessment/Plan 36 yo F with 1. Acute asthma exacerbation with bronchitis 2. who is approximately 33 weeks 1 day 3. Antiphospholipid antibody syndrome 4. R sided inguinal pain likely 2/2 msc sprain exacerbated by coughing PLAN: * Will get ultrasound of the abdomen to rule out underlying sinister cause. * Topical anti-inflammatory therapy * I will recall the laborist call as there has been no official note, and also to see what kind of imaging is safe for the patient at this point * continue bronchodilator therapy to scheduled * Continue q6 tylenol for inguinal pain * Treat constipation * supportive care * Continue home aspirin Subjective 24 Hr Interval Summary Free Text/Dictation patient continues to have severe R sided abd pain especially with coughing. She says she has not noticed a diiference with the scheduled tylenol. Coughing is somewhat better with bronchodilators however. Exam/Review of Systems Vital Signs Vitals Vital Signs Date Time Temp Pulse Resp B/P Pulse Ox O2 Delivery O2 Flow Rate FiO2 08/27/16 09:33 80 20 96 21 08/27/16 07:23 97.9 105/60 08/25/16 18:54 Room Air Intake and Output 08/26/16 08/26/16 08/27/16 15:00 23:00 07:00 Intake Total 1020 ml 510 ml Balance 1020 ml 510 ml Exam Constitutional: alert, oriented Head: normocephalic Neck: non-tender Respiratory: clear to auscultation, diminished breath sounds, other (hacking cough), No wheezing Cardiovascular: nl pulses, regular rate and rhythm, No murmurs/extra sounds Gastrointestinal: other (gravid uterus with tenderness on palpation R inguinal region) Extremities: No edema Neurological: nl mental status, nl speech Results Result Diagram: 08/27/16 0541 08/27/16 0541 Results 24 hrs Laboratory Tests Test 08/26/16 19:30 08/27/16 05:41 Urine Color LT. YELLOW Urine Clarity CLEAR Urine pH 6.5 Urine Specific [place] <=1.005 L Urine Ketones NEGATIVE Urine Nitrite NEGATIVE Urine Bilirubin NEGATIVE Urine Urobilinogen 0.2 E.U./dL Urine Leukocyte Esterase NEGATIVE Urine Microscopic RBC 0-2 Urine Microscopic WBC NONE SEEN Urine Epithelial Cells RARE Urine Bacteria RARE Urine Hemoglobin TRACE Urine Glucose NEGATIVE Urine Total Protein NEGATIVE White Blood Count 6.8 Red Blood Count 3.13 L Hemoglobin 9.6 L Hematocrit 29.7 L Mean Corpuscular Volume 94.9 Mean Corpuscular Hemoglobin 30.7 Mean Corpuscular Hemoglobin Concent 32.3 Red Cell Distribution Width 14.3 Platelet Count 273 Mean Platelet Volume 10.5 H Neutrophils % 67.9 Lymphocytes % 23.0 Monocytes % 4.8 Eosinophils % 2.9 Basophils % 0.1 Nucleated Red Blood Cells % 0.0 Neutrophils # 4.6 Lymphocytes # 1.6 Monocytes # 0.3 Eosinophils # 0.2 Basophils # 0.0 Nucleated Red Blood Cells # 0.0 Sodium Level 139 Potassium Level 3.8 Chloride Level 114 H Carbon Dioxide Level 23 Anion Gap 6 L Blood Urea Nitrogen 10 Creatinine 0.54 Glucose Level 79 Calcium Level 8.4 Medications Medications Current Medications Prenat Multivit/ [place]/Iron/Folic Ac ( S) 1 tab DAILY PO Last administered on 08/27/16 09:52; Admin Dose 1 TAB; Start 08/26/16 at 09:00 Enoxaparin Sodium (Lovenox) 40 mg DAILY SC Last administered on 08/27/16 10:05 ; Admin Dose 40 MG; Start 08/25/16 at 20:30 Acetaminophen (Tylenol Tab) 650 mg Q6 PO Last administered on 08/26/16 18:07; Admin Dose 650 MG; Start 08/26/16 at 17:30 Docusate Sodium (Colace) 100 mg BID PO Last administered on 08/27/16 09:52; Admin Dose 100 MG; Start 08/26/16 at 21:00 Polyethylene Glycol (Miralax) 17 gm DAILY PO Last administered on 08/27/16 09: 52; Admin Dose 17 GM; Start 08/27/16 at 09:00 Aspirin 81 mg 81 mg DAILY PO Last administered on 08/27/16 09:52; Admin Dose 81 MG; Start 08/27/16 at 09:00 Ceftriaxone Sodium 50 ml @ 100 mls/hr Q24H IVPB Last administered on 18:08; Admin Dose 100 MLS/HR; Start 08/26/16 at 17:30 Azithromycin (Zithromax 500mg/ NS (Pmx)) 250 ml @ 250 mls/hr Q24H IVPB Last administered on 08/26/16t 21:09; Admin Dose 250 MLS/HR; Start 08/26/16 at 18:30 Diclofenac Sodium (Voltaren 1% Gel) 2 gm QID TP ; Start 08/27/16 at 13:00 SANDRA HARDEN August 27, 2016 12:35
[2016-08-27] MEDS: DICLOFENAC SODIUM 1% GEL 100 GM TUBE TP SCH ×3 (13:00→21:08)
--- NOTE | 2016-08-27 14:13 | RADRPT ---
PROCEDURE: US Pelvis. CLINICAL INDICATION: Pelvic pain TECHNIQUE: Multiple sonographic images of the pelvis were obtained utilizing a transabdominal tech nique. The images were reviewed on a PACS workstation. COMPARISON: 08/25/2016 FINDINGS: The ovaries were not visualized. No free fluid is present within the pelvis. RPTAT: AA IMPRESSION: Ovaries not visualized. No evidence of free fluid. .Barney Jameson MD, MD Date Time Electronically viewed and signed by .Barney Jameson MD, on 08/27/2016 14:13 .S/
--- NOTE | 2016-08-27 14:15 | RADRPT ---
PROCEDURE: US Abdomen and retroperitoneal complete. CLINICAL INDICATION: abdominal pain TECHNIQUE: Multiple real-time images were acquired of the patient's abdomen and retroperitoneum ut ilizing a high resolution transducer. COMPARISON: None FINDINGS: The study is limited due to overlying bowel gas and patient's inability to hold her breath. The liver demonstrates increased echogenicity. The liver is normal in size and no focal solid lesio ns are seen. The portal vein is patent with normal direction of flow. No intrahepatic biliary dila tation is seen. The liver measures 17.9 cm in length. No gallstones are identified within the gallbladder. There is no pericholecystic fluid or gallbladd er wall thickening. The common bile duct measures 5 mm in maximal dimension. The visualized portions of the pancreas are unremarkable. The tail of the pancreas is not seen. The spleen is normal in size. The spleen measures 11 cm in length. No free fluid is identified. The kidneys are normal in size, and demonstrate normal cortical echogenicity and cortical thickness. The right kidney measures 10.2 cm. The left kidney measures 10.4 cm. There is no evidence of hyd ronephrosis. There are no kidney stones. RPTAT: AA IMPRESSION: Diffuse fatty infiltration of the liver. No evidence of gallstones. .Barney Jameson MD, Date Time Electronically viewed and signed by .Barney Jameson MD, MD on 08/27/2016 14:15 .S/
[2016-08-27] MEDS: CEFTRIAXONE 1 GM/50 ML (PMX) 50 ML IVPB SCH (18:56)
[2016-08-27] MEDS ORDERED: SOD CHLORIDE 0.9% 1,000 ML IV SCH (19:00)
[2016-08-27] MEDS: AZITHROMYCIN 500MG/NS (PMX) 250 ML IVPB SCH (19:34)
[2016-08-28] MEDS: ALBUTEROL 0.083% (NEB) 2.5 MG/3 ML AMP HHN SCH ×5 (00:28→17:47)
[2016-08-28] MEDS: ACETAMINOPHEN 325 MG TAB PO SCH ×4 (00:39→18:00)
[2016-08-28 06:50] LABS: ADD SCAN DIFF NO
[2016-08-28 06:53] LABS: BASOPHILS % 0.3 % (0.0-2.0); EOSINOPHILS # 0.2 10^3/ul (0.0-0.5); EOSINOPHILS % 3.1 % (0.0-7.0); HEMATOCRIT 30.5 % (37.0-47.0); HEMOGLOBIN 9.9 g/dl (12.0-16.0); LYMPHOCYTES # 1.7 10^3/ul (0.8-2.9); LYMPHOCYTES % 23.9 % (15.0-51.0); MEAN CORPUSCULAR HEMOGLOBIN 30.7 pg (29.0-33.0); MEAN CORPUSCULAR HGB CONC 32.5 g/dl (32.0-37.0); MEAN CORPUSCULAR VOLUME 94.4 fl (82.0-101.0); MEAN PLATELET VOLUME 10.4 fl (7.4-10.4); MONOCYTE # 0.3 10^3/ul (0.3-0.9); MONOCYTES % 4.3 % (0.0-11.0); NEUTROPHIL # 4.7 10^3/ul (1.6-7.5); PLATELET COUNT 279 10^3/UL (140-415); RED BLOOD COUNT 3.23 10^6/ul (4.20-5.40); RED CELL DISTRIBUTION WIDTH 14.1 % (11.5-14.5)
[2016-08-28 07:17] LABS: POTASSIUM 3.6 mmol/L (3.5-5.1)
[2016-08-28 07:20] LABS: CREATININE 0.56 mg/dl (0.44-1.00)
[2016-08-28 07:21] LABS: CALCIUM 8.7 mg/dl (8.4-10.2)
[2016-08-28] MEDS: ASPIRIN (EC) 81 MG TAB PO SCH (08:41)
[2016-08-28] MEDS: DICLOFENAC SODIUM 1% GEL 100 GM TUBE TP SCH ×3 (08:41→17:16)
[2016-08-28] MEDS: DOCUSATE SODIUM 100 MG CAP PO SCH (08:41)
[2016-08-28] MEDS: MULTIVIT/MIN/FOLATE/IRON/PREN TAB PO SCH (08:41)
[2016-08-28] MEDS: POLYETHYLENE GLYCOL 17 GM PACKET PO SCH (08:41)
[2016-08-28] MEDS: ENOXAPARIN 40 MG/0.4 ML SYG SC SCH (08:43)
--- NOTE | 2016-08-28 11:45 | RADRPT ---
PROCEDURE: US OB biophysical profile. CLINICAL INDICATION: evaluation TECHNIQUE: Multiple sonographic images of the pelvis were obtained. The images were reviewed on a PACS workstation. COMPARISON: Obstetrical ultrasound from 08/27/2016 FINDINGS: There is a single viable intrauterine gestation. Cardiac activity is present with 152 beats per min genie. There is a vertex presentation. The placenta is anterior. There is no evidence of placental abruption. There is a normal amount of amniotic fluid with an TREY = 11.6 cm. Biophysical profile: movement 2/2 tone 2/2. breathing 2/2 TREY 2/2 Total 11/05 RPTAT: AA . IMPRESSION: Normal biophysical profile. Physician Osmin Date Time Electronically viewed and signed by Physician Osmin on 08/28/2016 11:45 /
[2016-08-28] MEDS ORDERED: GUAIFENESIN 20 MG/ML 5ML CUP PO PRN (14:30)
[2016-08-28] MEDS: CEFTRIAXONE 1 GM/50 ML (PMX) 50 ML IVPB SCH (16:56)
[2016-08-28] MEDS ORDERED: AMOX1TAB9 PO (17:05)
[2016-08-28] MEDS ORDERED: PRENAT PO (17:05)
[2016-08-28] MEDS ORDERED: LORA10CA PO (17:05)
[2016-08-28] MEDS ORDERED: ALBU18HF INHALATION (17:05)
[2016-08-28] MEDS ORDERED: DOCU-216 PO (17:05)
[2016-08-28] MEDS ORDERED: AZIT250T6 PO (17:05)
--- NOTE | 2016-08-28 17:07 | DS ---
Date/Time of Note Date/Time of Note DATE: 08/28/16 TIME: 17:07 Discharge Summary Admission/Discharge Info Admit Date/Time August 25, 2016 at 17:32 Discharge Date/Time Home Meds Active Scripts Loratadine* (Claritin*) 10 Mg Capsule, 10 MG PO DAILY for 30 Days, CAP Prov:SANDRA HARDEN. 08/28/16 Amoxicillin/Potassium Clav (Amox-Clav 500-125 mg Tablet) 500-125 mg Tab, 1 TAB PO BID for 5 Days, TAB Prov:SANDRA HARDEN. 08/28/16 Azithromycin* (Azithromycin*) 250 Mg Tablet, 250 MG PO DAILY, #4 TAB Prov:SANDRA HARDEN . 08/28/16 Albuterol Sulfate* (Ventolin HFA*) 18 Gm Hfa.aer.ad, 2 PUFF INHALATION Q4H, #1 INHALER 1 Refill Prov:SANDRA HARDEN. 08/28/16 Reported Medications Albuterol Sulfate* (Albuterol Sulfate* Neb) 0.083%-3 Ml Neb, 2.5 MG NEB Q4 Y for WHEEZING AND SOB, #30 VIAL 08/25/16 Aspirin* (Aspirin* EC) 81 Mg Tablet.dr, 81 MG PO DAILY, TAB 08/21/16 Enoxaparin Sodium* (Lovenox*) 40 Mg/0.4 Ml Syringe, 40 MG SC DAILY, SYR 08/21/16 Discontinued Reported Medications Vit No.124/Iron/FA ( Vitamin Tablet) 1 Each Tablet, 1 EACH PO, TAB 07/19/16 Acetaminophen* (Tylophen*) 500 Mg Capsule, 500 MG PO Q6H Y for HEADACHE, TAB 07/19/16 Enoxaparin Sodium (Enoxaparin Sodium) 100 Mg/1 Ml Syringe, 100 MG SC Q24H, SYR 07/19/16 [Denies] No Conflict Check 07/21/10 [None] No Conflict Check 07/20/09 Discontinued Scripts Prednisone* (Prednisone*) 20 Mg Tab, 40 MG PO DAILY for 4 Days, TAB Prov:TEZ GRIFFITH PA-C 08/21/16 Acetaminophen* (Tylenol*) 325 Mg Tablet, 650 MG PO Q4H Y for MILD PAIN LEVEL 1- 3 for 7 Days, TAB Prov:TEZ GRIFFITH PA-C 08/21/16 Guaifenesin-Dextromethorphan* (Robitussin* DM) 100MG/10MG/5ML Syrup, 10 ML PO Q6H Y for COUGH for 7 Days, ML Prov:TEZ GRIFFITH PA-C 08/21/16 Acetaminophen* (Tylenol*) 325 Mg Tablet, 650 MG PO Q6H Y for PAIN AND OR ELEVATED TEMP, #30 TAB Prov:JULIANNE RICHARDS PA-C 09/25/15 Primary Care Provider Care Physician No Primary Pending Labs Laboratory Tests Test 08/28/16 05:55 White Blood Count 7.010^3/ul (4.8-10.8) Red Blood Count 3.2310^6/ul (4.20-5.40) Hemoglobin 9.9g/dl (12.0-16.0) Hematocrit 30.5% (37.0-47.0) Mean Corpuscular Volume 94.4fl (82.0-101.0) Mean Corpuscular Hemoglobin 30.7pg (29.0-33.0) Mean Corpuscular Hemoglobin Concent 32.5g/dl (32.0-37.0) Red Cell Distribution Width 14.1% (11.5-14.5) Platelet Count 58302^3/UL (140-415) Mean Platelet Volume 10.4fl (7.4-10.4) Neutrophils % 67.0% (39.0-77.0) Lymphocytes % 23.9% (15.0-51.0) Monocytes % 4.3% (0.0-11.0) Eosinophils % 3.1% (0.0-7.0) Basophils % 0.3% (0.0-2.0) Nucleated Red Blood Cells % 0.0/100WBC (0.0-0.0) Neutrophils # 4.710^3/ul (1.6-7.5) Lymphocytes # 1.710^3/ul (0.8-2.9) Monocytes # 0.310^3/ul (0.3-0.9) Eosinophils # 0.210^3/ul (0.0-0.5) Basophils # 0.010^3/ul (0.0-0.1) Nucleated Red Blood Cells # 0.010^3/ul (0.0-0.0) Sodium Level 138mmol/L (135-144) Potassium Level 3.6mmol/L (3.5-5.1) Chloride Level 112mmol/L (97-110) Carbon Dioxide Level 21mmol/L (21-31) Anion Gap 9 (8-16) Blood Urea Nitrogen 10mg/dl (7-20) Creatinine 0.56mg/dl (0.44-1.00) Glucose Level 81mg/dl (70-220) Calcium Level 8.7mg/dl (8.4-10.2) SANDRA HARDEN August 28, 2016 17:07
[2016-08-28] MEDS: AZITHROMYCIN 500MG/NS (PMX) 250 ML IVPB SCH (17:53)
--- NOTE | 2016-09-01 15:00 | HP ---
Date/Time of Note Date/Time of Note DATE: 09/01/16 TIME: 14:54 Assessment/Plan VTE Prophylaxis VTE Prophylaxis Intervention: SCD's Lines/Catheters IV [facility] Saline Lock Urinary Cath still in place: No Assessment/Plan Assessment/Plan IMPRESSION 1. Asthma Exacerbation 2. 33 weeks 3. Hx of Antiphospholipid antibody syndrome 4. Hx of Depression PLAN Oxygen, bronchodilators and steroid monitoring per OB. HPI/ROS Admit Date/Time Admit Date/Time August 25, 2016 at 17:32 Hx of Present Illness Patient is a 36-year-old female with a past medical history of antiphospholipid syndrome currently on Lovenox who is who is approximately 33 weeks who presents to the ED with recurrent short of breath, cough and difficulty breathing on and off for the last 2 weeks. Patient has gone to multiple ERs and clinics for similar complaints. She states that she has used her albuterol inhaler and machine at home without improvement. She states that she was here on 08/21/16 and received a breathing treatment and prednisone. She finished her 4 days of prednisone however she states that her symptoms are exactly the same. Patient has been taking Lovenox for the last 7 months. She denies leg pain or leg swelling. PMH/Family/Social Past Medical History Medical History: other (Asthma, depression, anti-phospholipid syndrome) Past Surgical History Past Surgical Hx: no surgical history Social History Alcohol Use: occasionally Smoking Status: Unknown if ever smoked Drug Use: none Exam/Review of Systems Vital Signs Vitals Vital Signs Date Time Temp Pulse Resp B/P Pulse Ox O2 Delivery O2 Flow Rate FiO2 08/28/16 17:47 86 18 98 21 Exam Constitutional: alert, oriented, well developed Head: atraumatic, normocephalic Eyes: EOMI, PERRL Respiratory: wheezing Cardiovascular: nl pulses, regular rate and rhythm Gastrointestinal: other ( abd) Extremities: normal pulses Labs Result Diagram: 08/28/16 0555 08/28/16 0555 JD SMITH MD Sep 01, 2016 15:00
== END 2016-08-28 19:25 | disposition home or self-care (01) | DRG 781 ==
LOC: FTE 13:55 → TEL 17:32 → OBG 18:25
PROVIDERS: ADMIT Internal Medicine; ATTEND Internal Medicine
PROC: 3E0F73Z Introduction of Anti-inflammatory into Respiratory Tract, Via Natural or Artificial Opening (ICD-10-PCS; principal; 2016-08-25)
DX: O26.893 Other specified pregnancy related conditions, third trimester (principal); D68.61 Antiphospholipid syndrome; J45.901 Unspecified asthma with (acute) exacerbation; O99.113 Other diseases of the blood and blood-forming organs and certain disorders involving the immune mechanism complicating pregnancy, third trimester; Z3A.33 33 weeks gestation of pregnancy; F32.9 Major depressive disorder, single episode, unspecified
CPT/HCPCS: 71010; 76700; 76818; 76856; 80048; 80053; 81001; 83735; 84100; 85025; 87070; 94640; 94664; 96372; 96374; J0456; J0696; J1650; J2270; J2920

== ENCOUNTER 2016-09-07 20:57 | Outpatient (CLI) | payer MEDICAID ==
[~2016-09-07] VITALS: Ht 152.4 cm; Wt 69.1 kg
[~2016-09-07 20:57] MED LIST changes: -ACET325T33 PO; +ALBU2.5V3 NEB; +AMOX1TAB9 PO; +AZIT250T6 PO; +DOCU-216 PO; +LORA10CA PO; -PRED20TA PO; -PREN-93 PO; +PRENAT PO; -UDROBDM PO
[2016-09-07 21:35] VITALS: Ht 152.4 cm; Wt 69.1 kg
[2016-09-07 21:37] VITALS: BP 116/65; PULSE 65; RESP 18
--- NOTE | 2016-09-07 22:46 | RADRPT ---
PROCEDURE: US OB biophysical profile. CLINICAL INDICATION: decreased movements, labor TECHNIQUE: Multiple sonographic images of the pelvis were obtained. The images were reviewed on a PACS workstation. COMPARISON: 08/28/2016 FINDINGS: There is a single viable intrauterine gestation. Cardiac activity is present with 140 beats per min [place]. There is a vertex presentation. The placenta is anterior. There is no evidence of placental abruption. There is a normal amount of amniotic fluid with an TREY = 12.5 cm. Biophysical profile: movement 2/2 tone 2/2. breathing 2/2 TREY 2/2 Total 11/05 RPTAT: AA . IMPRESSION: Normal biophysical profile. . .Barney Jameson MD, MD Date Time Electronically viewed and signed by .Barney Jameson MD, MD on 09/07/2016 22:45 .S/
--- NOTE | 2016-09-07 23:03 | PN ---
Triage Information Date/Time Weeks of Gestation Patient is 9 para 5 at 34+5 weeks of gestation with a known diagnosis of antiphospholipid antibody syndrome She presents with chest pain Patient is currently on subQ Lovenox and baby aspirin daily Patient is also with history of asthma currently and albuterol as needed although she has been admitted during this and has received prednisone for an episode of asthma attack Patient received her care at [facility] : 9 Para: 5 Diabetes: none Hypertention: none Objective Vital Signs Date Time Temp Pulse Resp B/P Pulse Ox O2 Delivery O2 Flow Rate FiO2 09/07/16 21:37 97.7 65 18 116/65 98 Room Air Exam heart rate reactive, no decelerations Leonidas none Biophysical profile of 8 out of 8 Results/Medications Imaging Results PROCEDURE: US OB biophysical profile. CLINICAL INDICATION: decreased movements, labor TECHNIQUE: Multiple sonographic images of the pelvis were obtained. The images were reviewed on a PACS workstation. COMPARISON: 08/28/2016 FINDINGS: There is a single viable intrauterine gestation. Cardiac activity is present with 140 beats per minute. There is a vertex presentation. The placenta is anterior. There is no evidence of placental abruption. There is a normal amount of amniotic fluid with an TREY = 12.5 cm. Biophysical profile: movement 2/2 tone 2/2. breathing 2/2 TREY 2/2 Total 11/05 RPTAT: AA . IMPRESSION: Normal biophysical profile. . .Barney Jameson MD, MD Date Time Electronically viewed and signed by .Barney Jameson MD, MD on 09/07/2016 22: 45 .S/ CC: SCHUYLER KAMINSKI MD Assessment/Plan Patient is a 34+5 weeks of gestation with chief complaint of chest pain Patient with known history of antiphospholipid antibody syndrome and asthma Patient is cleared obstetrically from standpoint We will have the patient go back down to the emergency department for further evaluation of her chest pain In the patient is required to be admitted for maternal reasons we recommend that a perinatology consultation should be requested FAZILAT,SCHUYLER MD Sep 07, 2016 23:03
--- NOTE | 2016-09-08 00:16 | TRIAGE ---
OB Triage Datetime Report Generated by CPN: 09/08/2016 00:15 Datetime: 09/07/2016 21:08 Time of Arrival: 09/07/2016 20:52 EGA: 34.5 Arrived By: Wheelchair Arrived From: Home Chief Complaint: Cough, UC's, pressure (Annotations: Data stored by CPN on behalf of user) Movement: Present Contractions: Occasional Rupture of Membranes: Denies Vaginal Bleeding: None Vaginal Discharge: Denies Recent Sexual Intercouse: Denies Abdominal Trauma: Not Applicable Patient Complaints: Contractions; Cough; Other Time Provider Notified: 09/07/2016 21:34 Provider Notified: Dr Rojas Initial Plan: NST, BPP, ER for further evaluation Datetime: 08/28/2016 18:00 Stage of : Antepartum Maternal Assessment Level of Consciousness: Fully Conscious Headache: Denies Nausea/Vomiting: Denies RUQ Epigastric Pain: Denies Labor Evaluation Frequency: 0 Monitor Mode: External Pain Assessment Pain Scale: 0 Pain Presence: None/Denies Vaginal Bleeding: None Datetime: 08/28/2016 17:48 Stage of : Antepartum Datetime: 08/28/2016 16:00 Stage of : Antepartum Maternal Assessment Level of Consciousness: Fully Conscious Headache: Denies Nausea/Vomiting: Denies RUQ Epigastric Pain: Denies Labor Evaluation Frequency: 0 Monitor Mode: External Heart Rate FHR Baseline Rate: 135 Monitor Mode: External US Variability: Moderate 6-25 bpm Accelerations: 15X15 Decelerations: None Pain Assessment Pain Scale: 0 Pain Presence: None/Denies Vaginal Bleeding: None Datetime: 08/28/2016 15:00 Stage of : Antepartum Maternal Assessment Level of Consciousness: Fully Conscious Headache: Denies Nausea/Vomiting: Denies RUQ Epigastric Pain: Denies Labor Evaluation Frequency: 0 Monitor Mode: External Heart Rate FHR Baseline Rate: 135 Monitor Mode: External US Variability: Moderate 6-25 bpm Accelerations: 15X15 Decelerations: None Pain Assessment Pain Scale: 0 Pain Presence: None/Denies Vaginal Bleeding: None Datetime: 08/28/2016 14:00 Stage of : Antepartum Maternal Assessment Level of Consciousness: Fully Conscious Headache: Denies Nausea/Vomiting: Denies RUQ Epigastric Pain: Denies Pain Assessment Pain Scale: 0 Pain Presence: None/Denies Vaginal Bleeding: None Datetime: 08/28/2016 13:00 Stage of : Antepartum Maternal Assessment Level of Consciousness: Fully Conscious Headache: Denies Nausea/Vomiting: Denies RUQ Epigastric Pain: Denies Pain Assessment Pain Scale: 0 Pain Presence: None/Denies Vaginal Bleeding: None Datetime: 08/28/2016 12:00 Stage of : Antepartum Maternal Assessment Level of Consciousness: Fully Conscious Headache: Denies Nausea/Vomiting: Denies RUQ Epigastric Pain: Denies Pain Assessment Pain Scale: 0 Pain Presence: None/Denies Vaginal Bleeding: None Datetime: 08/28/2016 11:16 Stage of : Antepartum Temperature Route: Oral Datetime: 08/28/2016 11:00 Stage of : Antepartum Maternal Assessment Level of Consciousness: Fully Conscious Headache: Denies Nausea/Vomiting: Denies RUQ Epigastric Pain: Denies Pain Assessment Pain Scale: 0 Pain Presence: None/Denies Vaginal Exam Membrane Status: Intact Vaginal Bleeding: None Datetime: 08/28/2016 10:00 Stage of : Antepartum Maternal Assessment Level of Consciousness: Fully Conscious Headache: Denies Nausea/Vomiting: Denies RUQ Epigastric Pain: Denies Pain Assessment Pain Scale: 0 Pain Presence: None/Denies Vaginal Exam Membrane Status: Intact Vaginal Bleeding: None Datetime: 08/28/2016 09:00 Stage of : Antepartum Maternal Assessment Level of Consciousness: Fully Conscious Headache: Denies Nausea/Vomiting: Denies RUQ Epigastric Pain: Denies Contraction Comments: pt. denies Comments: pt. acknowledges movement Pain Assessment Pain Scale: 0 Pain Presence: None/Denies Vaginal Exam Membrane Status: Intact Vaginal Bleeding: None Datetime: 08/28/2016 08:45 Stage of : Antepartum Pain Presence: None/Denies Datetime: 08/28/2016 08:09 Stage of : Antepartum Temperature Route: Oral Datetime: 08/28/2016 07:13 Assessment Type: Ongoing Assessment Maternal Assessment Level of Consciousness: Fully Conscious Maternal Assessment Level of Consciousness: Fully Conscious DTR's/Clonus: DTRs 2+; No Clonus Headache: Denies Headache: Denies Blurred Vision: No Blurred Vision: No Respiratory Effort: Unlabored; Regular Rhythm; Equal Expansion Breath Sounds, Left: Diminished; Crackles Breath Sounds, Left: Diminished; Wheezes Breath Sounds, Right: Diminished; Crackles Breath Sounds, Right: Diminished; Wheezes Nausea/Vomiting: Denies Nausea/Vomiting: Denies RUQ Epigastric Pain: Denies RUQ Epigastric Pain: Denies Lower Extremities Edema: None Degree: None Upper Extremities Edema: None Degree: None Facial Edema: None Fall Risk Assessment History of Falling: (0) No Secondary Diagnosis: (0) No Ambulatory Aid: (0) Bedrest/Nurse Assist IV Therapy: (0) No Gait: (0) Normal/Bedrest/Immobile Mental Status: (0) Oriented to Own Ability Fall Score: 0 Fall Risk Score Definition: No Risk: No action required Datetime: 08/28/2016 06:01 Maternal Assessment Level of Consciousness: Fully Conscious DTR's/Clonus: DTRs 2+ Headache: Denies Blurred Vision: No Respiratory Effort: Unlabored; Regular Rhythm; Equal Expansion Temperature Route: Oral Pain Presence: None/Denies Pain Relief Measures: pt refused scheduled tylenol. Datetime: 08/27/2016 22:36 Labor Evaluation Frequency: X3 Monitor Mode: External Duration (sec)2399: 40-60 Quality: Mild Resting Tone [place]: Relaxed Heart Rate FHR Baseline Rate: 135 Monitor Mode: External US Variability: Moderate 6-25 bpm Accelerations: 15X15 Decelerations: None Category: Category I Comments: NST DONE Pain Presence: None/Denies Pain Type: N/A Datetime: 08/27/2016 21:52 Monitor Mode: External Contraction Comments: PLACED NST STARTED. Monitor Mode: External US Comments: PLACED NST STARTED. Datetime: 08/27/2016 19:56 Stage of : Antepartum Assessment Type: Ongoing Assessment Maternal Assessment Level of Consciousness: Fully Conscious DTR's/Clonus: DTRs 2+; No Clonus Headache: Denies Blurred Vision: No Respiratory Effort: Unlabored; Regular Rhythm; Equal Expansion Breath Sounds, Left: Diminished; Crackles Breath Sounds, Right: Diminished; Crackles Nausea/Vomiting: Denies RUQ Epigastric Pain: Denies Lower Extremities Edema: None Degree: None Upper Extremities Edema: None Degree: None Facial Edema: None Temperature Route: Oral Fall Risk Assessment History of Falling: (0) No Secondary Diagnosis: (0) No Ambulatory Aid: (0) Bedrest/Nurse Assist IV Therapy: (0) No Gait: (0) Normal/Bedrest/Immobile Mental Status: (0) Oriented to Own Ability Fall Score: 0 Fall Risk Score Definition: No Risk: No action required Pain Presence: Intermittent Pain Type: Dull Pain Location: Abdomen (Annotations: AFTER SHE COUGH.) Pain Relief Measures: Comfort Measures Datetime: 08/27/2016 18:32 Respiratory Effort: Unlabored Breath Sounds, Left: Crackles Breath Sounds, Right: Diminished Nausea/Vomiting: Denies Fall Risk Assessment History of Falling: (0) No Secondary Diagnosis: (0) No Datetime: 08/27/2016 18:23 Assessment Type: Admission Assessment Vaginal Bleeding: None Maternal Assessment Level of Consciousness: Fully Conscious DTR's/Clonus: DTRs 2+; No Clonus Headache: Denies Blurred Vision: No Respiratory Effort: Unlabored; Regular Rhythm; Equal Expansion Nausea/Vomiting: Denies RUQ Epigastric Pain: Denies Facial Edema: None Fall Risk Assessment History of Falling: (0) No Secondary Diagnosis: (0) No Ambulatory Aid: (0) Bedrest/Nurse Assist IV Therapy: (0) No Gait: (0) Normal/Bedrest/Immobile Mental Status: (0) Oriented to Own Ability Fall Score: 0 Fall Risk Score Definition: No Risk: No action required Pain Presence: None/Denies (Annotations: pt states she has pain in right lower abd when coughing.) Pain Type: Burning Pain Location: Abdomen Pain Goal: 0 Datetime: 08/27/2016 18:06 Time of Arrival: 08/27/2016 17:00 EGA: 33.1 Arrived By: Wheelchair Arrived From: Other Unit in Hospital Datetime: 08/27/2016 16:39 Decelerations: None Datetime: 08/25/2016 11:33 EGA: 32.6 Datetime: 08/25/2016 11:31 Fall Score: 0 Fall Risk Score Definition: No Risk: No action required Datetime: 08/21/2016 10:45 Fall Score: 0 Fall Risk Score Definition: No Risk: No action required Datetime: 08/21/2016 10:43 EGA: 32.2 Datetime: 07/19/2016 20:58 Fall Score: 0 Fall Risk Score Definition: No Risk: No action required Datetime: 07/19/2016 20:57 EGA: 27.4
== END 2016-09-07 23:25 | disposition home or self-care (01) ==
LOC: OBT 20:57 → L-D 20:58 → OBT 23:25
PROVIDERS: ATTEND Obstetrics & Gynecology
DX: O26.893 Other specified pregnancy related conditions, third trimester (principal); Z3A.34 34 weeks gestation of pregnancy
CPT/HCPCS: 76818; Z7500; G0463

== ENCOUNTER 2016-09-07 23:30 | Emergency (ER) | payer SELFPAY ==
[~2016-09-07] VITALS: Wt 75.0 kg
== END 2016-09-08 02:06 | disposition left against medical advice (07) ==
LOC: E/R 23:30
DX: Z53.21 Procedure and treatment not carried out due to patient leaving prior to being seen by health care provider (principal)

== ENCOUNTER 2016-09-29 22:02 | Inpatient (IN) | payer MEDICAID ==
[~2016-09-29] VITALS: Ht 153.7 cm; Wt 76.6 kg
[~2016-09-29 22:02] MED LIST changes: -AMOX1TAB9 PO; -AZIT250T6 PO; -DOCU-216 PO
[2016-09-29 22:51] VITALS: Ht 153.7 cm; Wt 76.6 kg
[2016-09-29 22:52] VITALS: BP 118/66; PULSE 66; RESP 18
--- NOTE | 2016-09-29 23:33 | HP ---
Date/Time of Note Date/Time of Note DATE: 09/29/16 TIME: 23:27 OB - History Hx of Present Free Text/Dictation 36 YO with IUP at 37 weeks who presents to L&D for Labor evaluation. she reports decreased FM. she denies vaginal bleeding, she had vaginal discharge. she was taking Lovenox 40 mg daily during this . she denies h/o DVT or PE. she had 2 losses. blood work was + for thrombophilia. records not available to me and patient is a poor historian. she was told not to take Lovenox if she experiences UCs. she did not take Lovenox for the past 3 days because she had irregular UCs. Care: Good Care Ultrasounds: Normal mid trimester US Obstetrical Complications: Other (on Lovenox) Medical Complications: Other (on Lovenox and asthma) Past Family/Social History * Past Medical, Surgical, Family and Obstetric Histories reviewed from chart. OB Admission Exam Vital Signs Vital Signs Vital Signs Date Time Temp Pulse Resp B/P Pulse Ox O2 Delivery O2 Flow Rate FiO2 09/29/16 22:52 98.3 66 18 118/66 Room Air Physical Exam HEENT: WNL Heart: Rhythm Normal Lungs: Clear, Equal Abdomen: WNL Extremities: Normal Reflexes: Normal Cervical Dilatation: None OB Assessment/Plan Other Assessment: ? early labor did not take Lovenox for 3 days Plan: Expectant Management ELIDA MEDRANO MD Sep 29, 2016 23:33
--- NOTE | 2016-09-30 | RADRPT ---
PROCEDURE: Limited OB ultrasound CLINICAL INDICATION: . Contractions. Evaluate fluid volume. TECHNIQUE: Sonographic evaluation to assess the amniotic fluid volume was performed. Transabdomin al imaging of the gravid uterus was performed. COMPARISON: 09/07/2016 FINDINGS: Single live intrauterine with cardiac activity is identified. The amniotic -fluid volume equals approximately 8.7 cm, within normal limits. Previously, the amniotic fluid volume measured 12.5 cm. No other abnormality is seen. IMPRESSION: 1. Amniotic fluid volume equals 8.7 cm. RPTAT: HLDM .Liam Barnard MD, Date Time Electronically viewed and signed by .Liam Barnard MD, on 09/30/2016 00:00 .M/
[2016-09-30 00:41] LABS: ADD UMIC NO; UR ASCORBIC ACID NEGATIVE (NEGATIVE); UR BACTERIA FEW /HPF (NONE SEEN); UR BILIRUBIN (Dip) NEGATIVE (NEGATIVE); UR BLOOD (Dip) NEGATIVE (NEGATIVE); UR CLARITY CLEAR (CLEAR); UR COLOR YELLOW (YELLOW); UR GLUCOSE (Dip) NEGATIVE (NEGATIVE); UR KETONES (Dip) NEGATIVE (NEGATIVE); UR LEUKOCYTE ESTERASE (Dip) NEGATIVE Leu/ul (NEGATIVE); UR MUCUS FEW /HPF (NONE SEEN); UR NITRITE (Dip) NEGATIVE (NEGATIVE); UR RBC 0 /HPF (0-5); UR SPECIFIC GRAVITY (Dip) 1.011 (1.003-1.030); UR SQUAMOUS EPITHELIAL CELL FEW /HPF (FEW); UR TOTAL PROTEIN (Dip) NEGATIVE (NEGATIVE); UR UROBILINOGEN (Dip) NEGATIVE (NEGATIVE)
[2016-09-30] MEDS ORDERED: LACTATED RINGER'S 1,000 ML IV PRN (00:49)
[2016-09-30] MEDS ORDERED: METHYLERGONOVINE 0.2 MG INJ IM PRN (01:00)
[2016-09-30] MEDS ORDERED: ACETAMINOPHEN/CODEINE #3 TAB PO PRN (01:00)
[2016-09-30] MEDS ORDERED: CARBOPROST 250 MCG INJ IM PRN (01:00)
[2016-09-30] MEDS ORDERED: AMPICILLIN 2 GM/NS (PMX) 100 ML IV ONE (01:00)
[2016-09-30] MEDS ORDERED: OXYTOCIN 30 UNITS/LR 500 ML IV PRN (01:00)
[2016-09-30] MEDS ORDERED: IBUPROFEN 600 MG TAB PO PRN (01:00)
[2016-09-30] MEDS ORDERED: BUTORPHANOL 2 MG INJ IV PRN (01:00)
[2016-09-30] MEDS ORDERED: LIDOCAINE 1% (MPF) 30 ML INJ INJ PRN (01:00)
[2016-09-30] MEDS ORDERED: MISOPROSTOL 200 MCG TAB PR PRN (01:00)
[2016-09-30] MEDS ORDERED: OXYTOCIN 30 UNITS/LR 500 ML IV SCH ×2 (01:00)
[2016-09-30] MEDS: LACTATED RINGER'S 1,000 ML IV SCH ×4 (01:14→23:12)
[2016-09-30 01:26] LABS: BARBITURATES Negative (NEGATIVE); BENZODIAZEPINES Negative (NEGATIVE); CANNABINOIDS Negative (NEGATIVE); COCAINE Negative (NEGATIVE); OPIATES Negative (NEGATIVE)
[2016-09-30 02:25] LABS: BASOPHILS % 0.2 % (0.0-2.0); EOSINOPHILS # 0.1 10^3/ul (0.0-0.5); EOSINOPHILS % 1.7 % (0.0-7.0); HEMOGLOBIN 9.5 g/dl (12.0-16.0); MEAN CORPUSCULAR HEMOGLOBIN 30.1 pg (29.0-33.0); MEAN CORPUSCULAR HGB CONC 32.8 g/dl (32.0-37.0); MEAN CORPUSCULAR VOLUME 91.8 fl (82.0-101.0); MEAN PLATELET VOLUME 11.8 fl (7.4-10.4); MONOCYTE # 0.6 10^3/ul (0.3-0.9); MONOCYTES % 7.3 % (0.0-11.0); NEUTROPHIL # 5.4 10^3/ul (1.6-7.5); NEUTROPHILS % 66.3 % (39.0-77.0); PLATELET COUNT 239 10^3/UL (140-415); RED BLOOD COUNT 3.16 10^6/ul (4.20-5.40); WHITE BLOOD COUNT 8.2 10^3/ul (4.8-10.8)
[2016-09-30 02:41] LABS: INR 0.9; PROTIME 12.1 Sec (12.2-14.2); PT RATIO 0.9
[2016-09-30 02:42] LABS: PARTIAL THROMBOPLASTIN TIME 28.6 Sec (25.0-35.0)
[2016-09-30 02:44] LABS: ALANINE AMINOTRANSFERASE 27 IU/L (13-69); ALBUMIN 3.6 g/dl (3.3-4.9); ALBUMIN/GLOBULIN RATIO 1.28; ALKALINE PHOSPHATASE 128 IU/L (42-121); ANION GAP 16 (8-16); ASPARTATE AMINO TRANSFERASE 26 IU/L (15-46); BILIRUBIN,INDIRECT 0.2 mg/dl (0-1.1); BILIRUBIN,TOTAL 0.2 mg/dl (0.2-1.3); BLOOD UREA NITROGEN 10 mg/dl (7-20); CARBON DIOXIDE 21 mmol/L (21-31); CHLORIDE 104 mmol/L (97-110); CREATININE 0.65 mg/dl (0.44-1.00); GLUCOSE 79 mg/dl (70-220); POTASSIUM 3.8 mmol/L (3.5-5.1); SODIUM 137 mmol/L (135-144); TOTAL PROTEIN 6.4 g/dl (6.1-8.1)
[2016-09-30 02:48] LABS: ADD SCAN DIFF NO
[2016-09-30] MEDS ORDERED: AMPICILLIN 1 GM/NS (PMX) 50 ML IV SCH (05:00)
--- NOTE | 2016-09-30 13:01 | RADRPT ---
PROCEDURE: US OB biophysical profile. CLINICAL INDICATION: decreased movements TECHNIQUE: Multiple sonographic images of the pelvis were obtained. The images were reviewed on a PACS workstation. COMPARISON: 09/29/2016 FINDINGS: There is a single viable intrauterine gestation. Cardiac activity is present with 136 beats per min [place]. There is a vertex presentation. The placenta is anterior. There is no evidence of placental abruption. There is a normal amount of amniotic fluid with an TREY = 8.1 cm. Biophysical profile: movement 2/2 tone 2/2. breathing 2/2 TREY 2/2 Total 11/05 RPTAT: AA . IMPRESSION: Normal biophysical profile. . .Barney Jameson MD, MD Date Time Electronically viewed and signed by .Barney Jameson MD, MD on 09/30/2016 13:01 .S/
[2016-09-30] MEDS ORDERED: DINOPROSTONE 10 MG VAG SUPP VAG ONE (15:00)
[2016-10-01] MEDS: BUTORPHANOL 2 MG INJ IV PRN ×2 (01:45→06:39)
[2016-10-01] MEDS ORDERED: OXYTOCIN 30 UNITS/LR 500 ML IV SCH (06:30)
[2016-10-01] MEDS: LACTATED RINGER'S 1,000 ML IV SCH ×3 (06:54→20:11)
[2016-10-01] MEDS ORDERED: FENTAnyl 2MCG/ML-ROPIV 0.2% 100 ML ONE (08:37)
[2016-10-01] MEDS ORDERED: HYDROmorphONE 1 MG/ML SYG IV PRN (10:00)
[2016-10-01] MEDS ORDERED: DIPHENHYDRAMINE 50 MG INJ IV PRN ×3 (10:00→19:30)
[2016-10-01] MEDS ORDERED: ONDANSETRON 4 MG INJ IV PRN ×3 (10:00→19:30)
[2016-10-01] MEDS ORDERED: NALOXONE (0.4 MG/ML) INJ IV PRN ×2 (10:00→19:30)
[2016-10-01] MEDS: FENTAnyl 2MCG/ML-ROPIV 0.2% 100 ML BAG EPI SCH ×2 (10:29→16:09)
[2016-10-01] MEDS ORDERED: ONDANSETRON 4 MG INJ IV STA (10:36)
[2016-10-01] MEDS: DEXTROSE 5%-LR 1,000 ML IV SCH ×2 (13:06→22:30)
[2016-10-01] MEDS ORDERED: AMPICILLIN 2 GM/NS (PMX) 100 ML ONE (15:07)
[2016-10-01] MEDS ORDERED: AMPICILLIN 2 GM/NS (PMX) 100 ML IVPB ONE (15:30)
[2016-10-01] MEDS ORDERED: CITRIC ACID/NA CITRATE 30 ML CUP ONE (17:26)
[2016-10-01] MEDS ORDERED: CEFAZOLIN 2 GM/50 ML (PMX) 50 ML IVPB ONE (17:34)
[2016-10-01] MEDS ORDERED: CEFAZOLIN 2 GM/50 ML (PMX) 50 ML IVPB PRN (18:00)
--- NOTE | 2016-10-01 18:31 | HP ---
Date/Time of Note Date/Time of Note DATE: 10/01/16 TIME: 18:15 Assessment/Plan VTE Prophylaxis VTE Prophylaxis Intervention: anti-embolic stocking Lines/Catheters IV Catheter Type (from Nrsg): Peripheral IV HPI/ROS Admit Date/Time Admit Date/Time October 01, 2016 Preoperative history and physical Hx of Present Illness This patient is a 36 years old 10 para 5 for with estimated date of confinement of October 14, 2016 which makes her 38 weeks and 1 day today She came this morning with contractions which apparently started about 3:00 in the morning. Membrane was ruptured artificially at 11:00 o'clock. She made progress to complete dilatation by about 4:30 PM however no further descent was made.Due to lack of progress and lack of descent of the head and considering patient request she will undergo a primary section In reviewing her past medical history she has asthma for which she has been taking inhaler Has a history of breast cyst removal 8 years ago . she is taking Lovenox for high antiphospholipidase. She also mentioned that she had a LEEP procedure on 2014, 2 years ago. Current Medications Medications (Trade) Dose Ordered Sig/Hill Route PRN Reason Start Time Stop Time Status Last Admin Dose Admin Lactated Ringer's 1,000 ml @ 125 mls/hr Q8H IV 09/30/16 00:45 10/01/16 16:03 125 MLS/HR Ampicillin 100 ml @ 100 mls/hr ONCE ONCE IV 09/30/16 01:00 09/30/16 01:59 DC 09/30/16 03:20 100 MLS/HR Ampicillin (Ampicillin 1 Gm/ NS (Pmx)) 50 ml @ 100 mls/hr Q4H IV 09/30/16 05:00 09/30/16 08:41 DC 09/30/16 07:29 100 MLS/HR Butorphanol Tartrate (Stadol) 1 mg Q2H PRN IV PAIN 09/30/16 01:00 10/01/16 04:28 1 MG Butorphanol Tartrate (Stadol) 2 mg Q2H PRN IV PAIN 09/30/16 01:00 10/01/16 06:39 2 MG Lidocaine 30 ml 30 ml ONCE PRN INJ EPISIOTOMY/TEARING 09/30/16 01:00 Oxytocin/Lactated Ringer's 500 ml @ 125 mls/hr ONCE -MAY REPEAT X1 IV 09/30/16 01:00 Oxytocin/Lactated Ringer's 500 ml @ 125 mls/hr ONCE IV 09/30/16 01:00 Ibuprofen (Motrin) 600 mg ONCE PRN PO Mild Pain (Pain Score 1-3) 09/30/16 01:00 Acetaminophen/ Codeine Phosphate 2 tab 2 tab ONCE PRN PO Moderate to Severe Pain (4-10) 09/30/16 01:00 Lactated Ringer's 1,000 ml @ 2,000 mls/hr Q30M PRN IV PRE-EPIDURAL BOLUS 09/30/16 00:49 10/01/16 08:28 2,000 MLS/HR Oxytocin/Lactated Ringer's 500 ml @ 0 mls/hr ONCE PRN IV For Hemorrhage Management 09/30/16 01:00 Methylergonovine Maleate (Methergine) 0.2 mg ONCE PRN IM VAGINAL BLEEDING 09/30/16 01:00 Carboprost Tromethamine (Hemabate) 250 mcg ONCE PRN IM VAGINAL BLEEDING 09/30/16 01:00 Misoprostol (Cytotec) 1,000 mcg ONCE PRN [place] VAGINAL BLEEDING 09/30/16 01:00 Dinoprostone 10 mg 10 mg ONCE ONCE VAG 09/30/16 15:00 09/30/16 15:01 DC 09/30/16 15:11 10 MG Oxytocin/Lactated Ringer's 500 ml @ 0 mls/hr Q0M IV 10/01/16 06:30 10/01/16 06:46 1 MLS/HR Fentanyl/ Ropivacaine 100 ml @ ud STK-MED ONCE .ROUTE 10/01/16 08:37 10/01/16 08:38 DC Naloxone HCl (Narcan) 0.1 mg Q2M PRN IV FOR RESP RATE 8 OR LESS 10/01/16 10:00 10/02/16 09:59 Hydromorphone HCl (Dilaudid) 0.2 mg Q3H PRN IV PAIN LEVEL 1-5 10/01/16 10:00 10/02/16 09:59 Hydromorphone HCl (Dilaudid) 0.4 mg Q3H PRN IV PAIN LEVEL 6-10 10/01/16 10:00 10/02/16 09:59 Diphenhydramine HCl (Benadryl) 25 mg Q6H PRN IV ITCHING 10/01/16 10:00 10/02/16 09:59 Ondansetron HCl (Zofran Inj) 4 mg Q6H PRN IV NAUSEA AND/OR VOMITING 10/01/16 10:00 10/02/16 09:59 10/01/16 17:29 4 MG Fentanyl/ Ropivacaine 100 ml EPIDURAL INFUSION EPI 10/01/16 10:00 10/01/16 16:09 100 ML Ondansetron HCl 4 mg 4 mg ONCE STAT IV 10/01/16 10:36 10/01/16 10:38 DC 10/01/16 10:41 4 MG Dextrose/Lactated Ringer's 1,000 ml @ 125 mls/hr Q8H IV 10/01/16 13:00 10/01/16 13:06 125 MLS/HR Ampicillin 100 ml @ 100 mls/hr ONCE ONCE IVPB 10/01/16 15:30 10/01/16 16:29 DC 10/01/16 15:16 100 MLS/HR Ampicillin 100 ml @ ud STK-MED ONCE .ROUTE 10/01/16 15:07 10/01/16 15:08 DC Ampicillin (Ampicillin 1 Gm/ NS (Pmx)) 50 ml @ 100 mls/hr Q4H IV 10/01/16 20:30 Citric Acid/ Sodium Citrate 30 ml 30 ml STK-MED ONCE .ROUTE 10/01/16 17:26 10/01/16 17:27 DC Cefazolin Sodium/ Dextrose 50 ml @ ud STK-MED ONCE IVPB 10/01/16 17:34 10/01/16 17:35 DC Cefazolin Sodium/ Dextrose (Ancef 2 Gm/50 ml (Pmx)) 50 ml @ 100 mls/hr ONCE PRN IVPB PRE OP 10/01/16 18:00 10/02/16 02:00 ROS Constitutional: No chills, No diaphoresis, No disoriented, No fatigue, No febrile, No improved, No nausea, No no complaints, No other, No poor po, No weight change Eyes: No discharge, No no complaints, No other, No pain, No redness, No visual change ENT: No bleeding, No congestion, No discharge, No dysphagia, No no complaints, No other, No pain, No sore throat Respiratory: No cough, No no complaints, No other, No pain, No pleuritic pain, No shortness of breath, No sputum, No wheezing Cardiovascular: No chest pain, No edema, No lightheadedness, No no complaints, No orthopenea, No other, No palpitations, No paroxysmal nocturnal dyspnea Gastrointestinal: No blood, No constipation, No decreased appetite, No diarrhea , No flatus, No nausea, No no complaints, No other, No pain, No passing stool, No vomiting Genitourinary: other (Cervix is completely dilated head at -1-2 station), No bleeding, No discharge, No dysuria, No flank pain, No hematuria, No no complaints Musculoskeletal: other (Knee-jerk reflexes normal), No back pain, No bone/joint pain, No neck pain, No no complaints, No restricted range of motion, No swelling Skin: No bruising, No erythema, No laceration, No no complaints, No other, No pruritis, No rash, No skin lesions Neurologic: No confusion, No dizziness, No focal-weakness, No headache, No no complaints, No other, No seizure, No syncope Additional Comments , its possible complications, possible need for blood transfusion, need for a repeat section in case of future pregnancies all mentioned to her . Patient understand all of those and will undergo this procedure End of dictation PMH/Family/Social Past Surgical History Past Surgical Hx: no surgical history Social History Smoking Status: Never smoker Exam/Review of Systems Vital Signs Vitals Vital Signs Date Time Temp Pulse Resp B/P Pulse Ox O2 Delivery O2 Flow Rate FiO2 09/29/16 22:52 98.3 66 18 118/66 Room Air Intake and Output 09/30/16 09/30/16 10/01/16 15:00 23:00 07:00 Intake Total 50 ml 2000 ml 1120 ml Output Total 250 ml 400 ml 750 ml Balance -200 ml 1600 ml 370 ml Labs Result Diagram: 09/30/1611309/30/16113 Medications Medications Current Medications Lactated Ringer's (Lr) 1,000 ml @ 125 mls/hr Q8H IV Last administered on 16:03; Admin Dose 125 MLS/HR; Start 09/30/16 at 00:45 Butorphanol Tartrate (Stadol) 1 mg Q2H PRN IV PAIN Last administered on 04:28; Admin Dose 1 MG; Start 09/30/16 at 01:00 Butorphanol Tartrate (Stadol) 2 mg Q2H PRN IV PAIN Last administered on 06:39; Admin Dose 2 MG; Start 09/30/16 at 01:00 Lidocaine 30 ml 30 ml ONCE PRN INJ EPISIOTOMY/TEARING; Start 09/30/16 at 01:00 Oxytocin/Lactated Ringer's 500 ml @ 125 mls/hr ONCE IV ; Start 09/30/16 at 01:00 Ibuprofen (Motrin) 600 mg ONCE PRN PO Mild Pain (Pain Score 1-3); Start 09/30/16 at 01:00 Acetaminophen/ Codeine Phosphate 2 tab 2 tab ONCE PRN PO Moderate to Severe Pain (4-10); Start 09/30/16 at 01:00 Lactated Ringer's 1,000 ml @ 2,000 mls/hr Q30M PRN IV PRE-EPIDURAL BOLUS Last administered on 10/01/16 08:28; Admin Dose 2,000 MLS/HR; Start 09/30/16 at 00:49 Oxytocin/Lactated Ringer's 500 ml @ 0 mls/hr ONCE PRN IV For Hemorrhage Management; Start 09/30/16 at 01:00 Methylergonovine Maleate (Methergine) 0.2 mg ONCE PRN IM VAGINAL BLEEDING; Start 09/30/16 at 01:00 Carboprost Tromethamine (Hemabate) 250 mcg ONCE PRN IM VAGINAL BLEEDING; Start 09/30/16 at 01:00 Misoprostol 1000 mcg 1,000 mcg ONCE PRN [place] VAGINAL BLEEDING; Start 09/30/16 at 01 :00 Oxytocin/Lactated Ringer's 500 ml @ 0 mls/hr Q0M IV Last administered on 06:46; Admin Dose 1 MLS/HR; Start 10/01/16 at 06:30 Naloxone HCl (Narcan) 0.1 mg Q2M PRN IV FOR RESP RATE 8 OR LESS; Start 10/01/16 at 10:00; Stop 10/02/16 at 09:59 Hydromorphone HCl (Dilaudid) 0.2 mg Q3H PRN IV PAIN LEVEL 1-5; Start 10/01/16 at 10:00; Stop 10/02/16 at 09:59 Hydromorphone HCl (Dilaudid) 0.4 mg Q3H PRN IV PAIN LEVEL 6-10; Start 10/01/16 at 10:00; Stop 10/02/16 at 09:59 Diphenhydramine HCl (Benadryl) 25 mg Q6H PRN IV ITCHING; Start 10/01/16 at 10:00 ; Stop 10/02/16 at 09:59 Ondansetron HCl 4 mg 4 mg Q6H PRN IV NAUSEA AND/OR VOMITING Last administered on 10/01/16 17:29; Admin Dose 4 MG; Start 10/01/16 at 10:00; Stop 10/02/16 at 09: 59 Dextrose/Lactated Ringer's 1,000 ml @ 125 mls/hr Q8H IV Last administered on 13:06; Admin Dose 125 MLS/HR; Start 10/01/16 at 13:00 Ampicillin 50 ml @ 100 mls/hr Q4H IV ; Start 10/01/16 at 20:30 Cefazolin Sodium/ Dextrose (Ancef 2 Gm/50 ml (Pmx)) 50 ml @ 100 mls/hr ONCE PRN IVPB PRE OP; Start 10/01/16 at 18:00; Stop 10/02/16 at 02:00 SAAD MIRZA MD Oct 01, 2016 18:28
[2016-10-01] MEDS ORDERED: morphine SULFATE/PF (10 MG/10 ML) INJ ONE (18:49)
[2016-10-01] MEDS ORDERED: FENTAnyl 50 MCG/ML VIAL ONE (18:49)
[2016-10-01] MEDS ORDERED: NA BICARBONATE 8.4% 50 ML SYG ONE (18:49)
[2016-10-01] MEDS ORDERED: LIDOCAINE 2% (SDV) 5 ML INJ ONE (18:49)
[2016-10-01] MEDS ORDERED: METOCLOPRAMIDE 10 MG INJ ONE (18:49)
[2016-10-01] MEDS ORDERED: OXYTOCIN 10 UNIT INJ ONE (18:49)
[2016-10-01] MEDS ORDERED: MIDAZOLAM 1 MG/ML 2 ML INJ ONE (19:18)
[2016-10-01] MEDS ORDERED: TRIMETHOBENZAMIDE 100 MG/ML VIAL IM PRN (19:30)
[2016-10-01] MEDS ORDERED: OXYCODONE/ACETAMINOPHEN (5/325) TAB PO PRN ×3 (19:30→20:30)
[2016-10-01] MEDS ORDERED: MEPERIDINE 25 MG INJ IV PRN (19:30)
[2016-10-01] MEDS ORDERED: LABETALOL HCL 20MG INJ IV PRN (19:30)
[2016-10-01] MEDS ORDERED: HYDROmorphONE (0.2 MG/ML) 10ML SYG IV PRN ×3 (19:30)
[2016-10-01] MEDS ORDERED: CITRIC ACID/SODIUM CITRATE 15 ML CUP PO ONE (19:30)
[2016-10-01] MEDS ORDERED: FENTAnyl 50 MCG/ML VIAL IV PRN ×3 (19:30)
[2016-10-01] MEDS ORDERED: EPHEDrine SULFATE 50 MG/5 ML SYG IV PRN (19:30)
[2016-10-01] MEDS ORDERED: morphine 2 MG INJ IV PRN ×2 (19:30)
[2016-10-01] MEDS ORDERED: hydrALAzine 20 MG INJ IV PRN (19:30)
[2016-10-01] MEDS ORDERED: LACTATED RINGER'S 1,000 ML IV SCH ×2 (20:11)
[2016-10-01] MEDS: OXYTOCIN 30 UNITS/LR 500 ML IV SCH (20:11)
--- NOTE | 2016-10-01 20:11 | OPR ---
Operative Report Planned Procedure Procedure date Oct 01, 2016 Operative Report Procedure(s) Primary C Section Anesthesia type other Spinal Procedure Description Under satisfactory [spinal] anesthesia, the patient was prepped and draped and placed in a supine position, tilted to the left. Pfannenstiel incision was made , carried through the subcutaneous tissue. Bleeders brought under control with electrocautery. Fascia incised to the length of the incision. Rectus muscles from the fascia, divided midline. Peritoneum exposed, entered through a transverse incision. Exploration of abdomen revealed gravid uterus. Bladder flap was developed. Transverse incision was made in the lower segment of the uterus. Amniotic sac ruptured. amniotic fluid was clear Nasal oropharyngeal suction was performed. The baby was handed to the team for immediate attention. The placenta was delivered manually intact. Uterine cavity was cleaned with wet sponge and drainage established. Uterus closed in 2 layers using [0 chromic cat gut in continuous fashion in 2 layer. . Peritoneal cavity irrigated with warm saline. Sponge, needle and instrument count reported to be correct. Abdominal peritoneum closed with 0 chromic catgut continuously. Rectus muscle approximated with . Fascia closed with no 1chromic catgut , and skin closed with carmen. Estimated blood loss 600 mL. New born was male, 7lb 5 oz, score of 9 in one minute and 9 in five minutes. cord and placenta were normale. Physician Certification I, the undersigned physician, hereby certify that I have discussed the procedure described in this consent form with this patient (or the patient's legal business process representative), including: * The risk and benefits of the procedure; * Any adverse reactions that may reasonably be expected to occur; * Any alternative efficacious methods of treatment which may be medically viable ; * The potential problems that may occur during recuperation; * Potential for blood transfusion and associated risks/benefits; and I further certify that the patient/legally responsible person was encouraged to ask question and that all questions were answered. SAAD MIRZA MD Oct 01, 2016 20:09
--- NOTE | 2016-10-01 20:20 | DELSUM ---
Delivery Summary A-C Datetime Report Generated by CPN: 10/01/2016 20:20 DELIVERY PERSONNEL Press Tender Incendiary Grenade: Sebunnya, Phoebe MATERNAL INFORMATION Delivery Anesthesia: Epidural Medications in Delivery: LR 500ML PITOCIN 30 UNITS Placenta Cultured: No Maternal Complications: Other Other Maternal Complications: AMA LABOR SUMMARY EDC: 10/14/2016 00:00 EDC: 10/14/2016 00:00 No. Babies in Womb: 1 Attempted: No Labor Anesthesia: Epidural LABOR INFORMATION Reason for Induction: Oligohydramnios; Other Onset of Labor: 09/30/2016 14:00 Complete Dilatation: 10/01/2016 13:11 Oxytocin: Induction Group B Beta Strep: Negative Group B Beta Strep: Negative Antibiotics # of Doses: 5 Antibiotics Time of Last Dose: 10/01/2016 18:44 Steroids Given: None Reason Steroids Not Administered: Not Applicable MEMBRANES Membranes Rupture Method: Spontaneous Membranes Rupture Method: Spontaneous Rupture of Membranes: 10/01/2016 03:30 Length of Rupture (hr): 15.73 Amniotic Fluid Color: Clear Amniotic Fluid Color: Clear Amniotic Fluid Color: Clear Amniotic Fluid Color: Clear Amniotic Fluid Amount: Small Amniotic Fluid Amount: Large Amniotic Fluid Amount: Copious Amniotic Fluid Amount: Small Amniotic Fluid Odor: Normal Amniotic Fluid Odor: Normal Amniotic Fluid Odor: None Amniotic Fluid Odor: None Amniotic Fluid Odor: None STAGES OF LABOR Stage 1 hr: 23 Stage 1 min: 11 Stage 2 hr: 6 Stage 2 min: 3 Stage 3 hr: 0 Stage 3 min: 1 Total Time in Labor hr: 29 Total Time in Labor min: 15 VAGINAL DELIVERY Episiotomy: None Initial Vag Sponge Count: 10 Initial Vag Sharps Count: 1 CSECTION DELIVERY Primary Indication: Failure of Descent Secondary Indication: Arrest of Descent CSection Urgency: Non Elective CSection Incidence: Primary Labor: Labor Elective: Nonelective CSection Incision: Lower Uterine Transverse BABY A INFORMATION Delivery Date/Time: 10/01/2016 19:14 Method of Delivery: Born in Route : No : N/A Forceps: N/A Vacuum Extraction: N/A Shoulder Dystocia : No SHOULDER DYSTOCIA BABY A Infant Delivery Date/Time: 10/01/2016 19:14 PRESENTATION/POSITION BABY A Presentation: Cephalic Presentation: Cephalic Presentation: Cephalic Presentation: Cephalic Presentation: Cephalic Presentation: Cephalic Presentation: Cephalic Presentation: Cephalic Presentation: Cephalic Presentation: Unable to Assess Presentation: Unable to Assess Cephalic Presentation: Vertex Vertex Position: Left Occipital Anterior Breech Presentation: N/A PLACENTA INFORMATION BABY A Placenta Delivery Time : 10/01/2016 19:15 Placenta Method of Delivery: Manual Removal Placenta Status: Delivered SCORES BABY A Heart Rate 1 min: >100 bpm Resp Effort 1 min: Good Cry Reflex Irritability 1 min: Cough/Sneeze/Pulls Away Muscle Tone 1 min: Active Motion Color 1 min: Body Ferrum, Extremit Blue Resuscitation Effort 1 min: Tactile Stimulation SCORE 1 MIN: 9 Heart Rate 5 min: >100 bpm Resp Effort 5 min: Good Cry Reflex Irritability 5 min: Cough/Sneeze/Pulls Away Muscle Tone 5 min: Active Motion Color 5 min: Body Ferrum, Extremit Blue Resuscitation Effort 5 min: Tactile Stimulation SCORE 5 MIN: 9 INFANT INFORMATION BABY A Gestational Age at Delivery: 38.1 Gestational Status: Early Term- 37- 38.6 Weeks Infant Outcome : Liveborn Infant Condition : Stable Infant Sex: Male IDENTIFICATION/MEDS BABY A ID Band Number: [id number] ID Band Location: Right Leg; Left Arm Sensor Applied: Yes Sensor Number: [id number] Sensor Location : Cord Clamp Vitamin K Given : Not Given Erythromycin Given: Not Given WEIGHT/LENGTH BABY A Birthweight (gm): 3320 Infant Weight (lb): 7 Weight (oz): 5 Length (in): 19.00 Length (cm): 48.26 CORD INFORMATION BABY A No. Cord Vessels: 3 Nuchal Cord : Around Neck x1, Loose Nuchal Cord- Other: 0 True Knot: 0 Cord Blood Taken: Yes Banking/Donate Info: NO Suction: Mouth; Nose ASSESSMENT BABY A Complications: Decreased Variability; Multiple Variable Decels Physical Findings at Delivery: Within Normal Limits Infant Respirations: Appears Normal Asset Protection Professional/ALS Called : No Care By: Robbie TUCKER RN/Michael SALGADO RT Transferred To: Remains with Mother
[2016-10-01] MEDS ORDERED: METHYLERGONOVINE 0.2 MG INJ IM PRN ×3 (20:30)
[2016-10-01] MEDS ORDERED: LANOLIN 7 GM TUBE TOP PRN (20:30)
[2016-10-01] MEDS ORDERED: CARBOPROST 250 MCG INJ IM PRN ×2 (20:30)
[2016-10-01] MEDS ORDERED: OXYTOCIN 30 UNITS/LR 500 ML IV PRN ×2 (20:30)
[2016-10-01] MEDS ORDERED: AMPICILLIN 1 GM/NS (PMX) 50 ML IV SCH (20:30)
[2016-10-01] MEDS ORDERED: ACETAMINOPHEN 500 MG TAB PO PRN ×2 (20:30)
[2016-10-01] MEDS ORDERED: IBUPROFEN 600 MG TAB PO PRN ×2 (20:30)
[2016-10-01] MEDS ORDERED: MISOPROSTOL 200 MCG TAB PR PRN ×3 (20:30)
[2016-10-01 22:30] VITALS: BP 136/88; PULSE 68; RESP 18
[2016-10-01 23:00] VITALS: BP 130/72; PULSE 80; RESP 18
[2016-10-01] MEDS: HYDROmorphONE 1 MG/ML SYG IV PRN (23:15)
[2016-10-02] MEDS: OXYTOCIN 30 UNITS/LR 500 ML IV SCH (00:48)
[2016-10-02 04:00] VITALS: BP 118/62; PULSE 90; RESP 18
[2016-10-02] MEDS: LACTATED RINGER'S 1,000 ML IV SCH ×3 (06:25→21:49)
[2016-10-02 06:56] LABS: ADD SCAN DIFF NO
[2016-10-02 07:02] LABS: BASOPHILS % 0.2 % (0.0-2.0); EOSINOPHILS % 0.3 % (0.0-7.0); HEMATOCRIT 25.5 % (37.0-47.0); LYMPHOCYTES # 1.1 10^3/ul (0.8-2.9); LYMPHOCYTES % 9.6 % (15.0-51.0); MEAN CORPUSCULAR HEMOGLOBIN 28.9 pg (29.0-33.0); MEAN CORPUSCULAR HGB CONC 31.4 g/dl (32.0-37.0); MEAN CORPUSCULAR VOLUME 92.1 fl (82.0-101.0); MEAN PLATELET VOLUME 11.3 fl (7.4-10.4); MONOCYTE # 0.5 10^3/ul (0.3-0.9); MONOCYTES % 4.7 % (0.0-11.0); NEUTROPHIL # 9.6 10^3/ul (1.6-7.5); NEUTROPHILS % 84.8 % (39.0-77.0); PLATELET COUNT 205 10^3/UL (140-415); RED BLOOD COUNT 2.77 10^6/ul (4.20-5.40); RED CELL DISTRIBUTION WIDTH 14.3 % (11.5-14.5); WHITE BLOOD COUNT 11.4 10^3/ul (4.8-10.8)
[2016-10-02 08:00] VITALS: BP 102/55; PULSE 104; RESP 18
[2016-10-02] MEDS: ENOXAPARIN 40 MG/0.4 ML SYG SC SCH (09:00)
[2016-10-02] MEDS: HYDROmorphONE 1 MG/ML SYG IV PRN ×2 (10:49→15:58)
[2016-10-02 11:47] LABS: RUBELLA ANTIBODY - IGG 9.93 index
[2016-10-02 12:00] VITALS: BP 125/75; PULSE 89; RESP 17
[2016-10-02 15:49] VITALS: BP 134/74; RESP 19
--- NOTE | 2016-10-02 18:35 | PN ---
Date/Time of Note Date/Time of Note DATE: 10/02/16 TIME: 18:33 OB Subjective Subjective Subjective Post day 1 Afebrile vital signs are listed abdomen soft weak bowel sounds present lochia moderate extremity normal ambulation encouraged not orthostatic. Laboratory Tests Test 10/02/16 06:35 White Blood Count 11.410^3/ul Red Blood Count 2.7710^6/ul Hemoglobin 8.0g/dl Hematocrit 25.5% Mean Corpuscular Volume 92.1fl Mean Corpuscular Hemoglobin 28.9pg Mean Corpuscular Hemoglobin Concent 31.4g/dl Red Cell Distribution Width 14.3% Platelet Count 84520^3/UL Mean Platelet Volume 11.3fl Neutrophils % 84.8% Lymphocytes % 9.6% Monocytes % 4.7% Eosinophils % 0.3% Basophils % 0.2% Nucleated Red Blood Cells % 0.0/100WBC Neutrophils # 9.610^3/ul Lymphocytes # 1.110^3/ul Monocytes # 0.510^3/ul Eosinophils # 0.010^3/ul Basophils # 0.010^3/ul Nucleated Red Blood Cells # 0.010^3/ul Current Medications Medications (Trade) Dose Ordered Sig/Hill Route PRN Reason Start Time Stop Time Status Last Admin Dose Admin Lactated Ringer's 1,000 ml @ 125 mls/hr Q8H IV 09/30/16 00:45 10/01/16 20:44 DC 10/01/16 16:03 Ampicillin 100 ml @ 100 mls/hr ONCE ONCE IV 09/30/16 01:00 09/30/16 01:59 DC 09/30/16 03:20 Ampicillin (Ampicillin 1 Gm/ NS (Pmx)) 50 ml @ 100 mls/hr Q4H IV 09/30/16 05:00 09/30/16 08:41 DC 09/30/16 07:29 Butorphanol Tartrate (Stadol) 1 mg Q2H PRN IV PAIN 09/30/16 01:00 10/01/16 04:28 Butorphanol Tartrate (Stadol) 2 mg Q2H PRN IV PAIN 09/30/16 01:00 10/01/16 06:39 Lidocaine 30 ml 30 ml ONCE PRN INJ EPISIOTOMY/TEARING 09/30/16 01:00 Oxytocin/Lactated Ringer's 500 ml @ 125 mls/hr ONCE -MAY REPEAT X1 IV 09/30/16 01:00 10/01/16 20:27 Oxytocin/Lactated Ringer's 500 ml @ 125 mls/hr ONCE IV 09/30/16 01:00 Ibuprofen (Motrin) 600 mg ONCE PRN PO Mild Pain (Pain Score 1-3) 09/30/16 01:00 Acetaminophen/ Codeine Phosphate 2 tab 2 tab ONCE PRN PO Moderate to Severe Pain (4-10) 09/30/16 01:00 Lactated Ringer's 1,000 ml @ 2,000 mls/hr Q30M PRN IV PRE-EPIDURAL BOLUS 09/30/16 00:49 10/01/16 08:28 Oxytocin/Lactated Ringer's 500 ml @ 0 mls/hr ONCE PRN IV For Hemorrhage Management 09/30/16 01:00 Methylergonovine Maleate (Methergine) 0.2 mg ONCE PRN IM VAGINAL BLEEDING 09/30/16 01:00 10/01/16 20:44 DC Carboprost Tromethamine (Hemabate) 250 mcg ONCE PRN IM VAGINAL BLEEDING 09/30/16 01:00 10/01/16 20:44 DC Misoprostol (Cytotec) 1,000 mcg ONCE PRN [place] VAGINAL BLEEDING 09/30/16 01:00 10/01/16 20:44 DC Dinoprostone 10 mg 10 mg ONCE ONCE VAG 09/30/16 15:00 09/30/16 15:01 DC 09/30/16 15:11 Oxytocin/Lactated Ringer's 500 ml @ 0 mls/hr Q0M IV 10/01/16 06:30 10/01/16 06:46 Fentanyl/ Ropivacaine 100 ml @ ud STK-MED ONCE .ROUTE 10/01/16 08:37 10/01/16 08:38 DC Naloxone HCl (Narcan) 0.1 mg Q2M PRN IV FOR RESP RATE 8 OR LESS 10/01/16 10:00 10/01/16 20:44 DC Hydromorphone HCl (Dilaudid) 0.2 mg Q3H PRN IV PAIN LEVEL 1-5 10/01/16 10:00 10/02/16 19:00 Hydromorphone HCl (Dilaudid) 0.4 mg Q3H PRN IV PAIN LEVEL 6-10 10/01/16 10:00 10/02/16 19:00 10/02/16 15:58 Diphenhydramine HCl (Benadryl) 25 mg Q6H PRN IV ITCHING 10/01/16 10:00 10/01/16 20:44 DC Ondansetron HCl (Zofran Inj) 4 mg Q6H PRN IV NAUSEA AND/OR VOMITING 10/01/16 10:00 10/01/16 20:44 DC 10/01/16 17:29 Fentanyl/ Ropivacaine 100 ml EPIDURAL INFUSION EPI 10/01/16 10:00 10/01/16 16:09 Ondansetron HCl 4 mg 4 mg ONCE STAT IV 10/01/16 10:36 10/01/16 10:38 DC 10/01/16 10:41 Dextrose/Lactated Ringer's 1,000 ml @ 125 mls/hr Q8H IV 10/01/16 13:00 10/01/16 13:06 Ampicillin 100 ml @ 100 mls/hr ONCE ONCE IVPB 10/01/16 15:30 10/01/16 16:29 DC 10/01/16 15:16 Ampicillin 100 ml @ ud STK-MED ONCE .ROUTE 10/01/16 15:07 10/01/16 15:08 DC Ampicillin (Ampicillin 1 Gm/ NS (Pmx)) 50 ml @ 100 mls/hr Q4H IV 10/01/16 20:30 10/02/16 09:17 DC Citric Acid/ Sodium Citrate 30 ml 30 ml STK-MED ONCE .ROUTE 10/01/16 17:26 10/01/16 17:27 DC Cefazolin Sodium/ Dextrose 50 ml @ ud STK-MED ONCE IVPB 10/01/16 17:34 10/01/16 17:35 DC Cefazolin Sodium/ Dextrose (Ancef 2 Gm/50 ml (Pmx)) 50 ml @ 100 mls/hr ONCE PRN IVPB PRE OP 10/01/16 18:00 10/02/16 02:00 DC Lidocaine (Xylocaine 2% (Sdv)) 100 mg STK-MED ONCE .ROUTE 10/01/16 18:49 10/01/16 18:50 DC Sodium Bicarbonate (Na Bicarb 8.4% Syg) 50 ml STK-MED ONCE .ROUTE 10/01/16 18:49 10/01/16 18:50 DC Fentanyl (Sublimaze) 100 mcg STK-MED ONCE .ROUTE 10/01/16 18:49 10/01/16 18:50 DC Metoclopramide HCl (Reglan) 10 mg STK-MED ONCE .ROUTE 10/01/16 18:49 10/01/16 18:50 DC Morphine Sulfate (Duramorph) 10 mg STK-MED ONCE .ROUTE 10/01/16 18:49 10/01/16 18:50 DC Oxytocin (Oxytocin) 10 units STK-MED ONCE .ROUTE 10/01/16 18:49 10/01/16 18:50 DC Midazolam HCl (Versed) 2 mg STK-MED ONCE .ROUTE 10/01/16 19:18 10/01/16 19:19 DC Naloxone HCl (Narcan) 0.1 mg Q2M PRN IV FOR RESP RATE 8 OR LESS 10/01/16 19:30 10/02/16 19:29 Morphine Sulfate (morphine) 2 mg Q3H PRN IV PAIN LEVEL 1-5 10/01/16 19:30 10/02/16 19:29 Morphine Sulfate (morphine) 4 mg Q3H PRN IV PAIN LEVEL 6-10 10/01/16 19:30 10/02/16 19:29 10/02/16 06:20 Diphenhydramine HCl (Benadryl) 25 mg Q6H PRN IV ITCHING 10/01/16 19:30 10/02/16 19:29 Ondansetron HCl (Zofran Inj) 4 mg Q6H PRN IV NAUSEA AND/OR VOMITING 10/01/16 19:30 10/02/16 19:29 Miscellaneous Information (* Miscellaneous Pharmacy Order) Duramorph: 2 mg Epidu... GIVEN XX 10/01/16 19:30 Hydromorphone HCl (Dilaudid (Rec)) 0.2 mg PACU ORDER PRN IV MILD PAIN LEVEL 1-3 10/01/16 19:30 10/01/16 23:59 DC Hydromorphone HCl (Dilaudid (Rec)) 0.4 mg PACU ORDER PRN IV MODERATE PAIN LEVEL 4-6 10/01/16 19:30 10/01/16 23:59 DC Hydromorphone HCl (Dilaudid (Rec)) 0.6 mg PACU ORDER PRN IV SEVERE PAIN LEVEL 7-10 10/01/16 19:30 10/01/16 23:59 DC Fentanyl (Sublimaze) 25 mcg PACU ORDER PRN IV MILD PAIN LEVEL 1-3 10/01/16 19:30 10/01/16 23:59 DC Fentanyl (Sublimaze) 50 mcg PACU ODER PRN IV MODERATE PAIN LEVEL 4-6 10/01/16 19:30 10/01/16 23:59 DC Fentanyl (Sublimaze) 75 mcg PACU ORDER PRN IV SEVERE PAIN LEVEL 7-10 10/01/16 19:30 10/01/16 23:59 DC Oxycodone/ Acetaminophen (Percocet (5/ 325)) 1 tab PACU ORDER PRN PO PAIN LEVEL 1-5 10/01/16 19:30 10/01/16 23:59 DC Oxycodone/ Acetaminophen (Percocet (5/ 325)) 2 tab PACU ORDER PRN PO PAIN LEVEL 6-10 10/01/16 19:30 10/01/16 23:59 DC Ondansetron HCl (Zofran Inj) 4 mg PACU ORDER PRN IV NAUSEA AND/OR VOMITING 10/01/16 19:30 10/01/16 23:59 DC Trimethobenzamide HCl (Tigan) 200 mg PACU ORDER PRN IM NAUSEA AND/OR VOMITING 10/01/16 19:30 10/01/16 23:59 DC Labetalol HCl (Labetalol) 5 mg PACU ORDER PRN IV HIGH BLOOD PRESSURE 10/01/16 19:30 10/01/16 23:59 DC Hydralazine HCl (Apresoline) 5 mg PACU ORDER PRN IV HIGH BLOOD PRESSURE 10/01/16 19:30 10/01/16 23:59 DC Ephedrine Sulfate 5 mg PACU ORDER PRN IV MAP LESS THAN 60 10/01/16 19:30 10/01/16 23:59 DC Meperidine HCl (Demerol) 25 mg PACU ORDER PRN IV POST-OP RIGORS 10/01/16 19:30 10/01/16 23:59 DC Diphenhydramine HCl (Benadryl) 25 mg PACU ORDER PRN IV PRURITUS 10/01/16 19:30 10/01/16 23:59 DC Citric Acid/ Sodium Citrate 30 ml 30 ml ONCE ONCE PO 10/01/16 19:30 10/01/16 19:40 DC Lactated Ringer's 1,000 ml @ 125 mls/hr Q8H IV 10/01/16 20:11 10/01/16 20:41 DC Oxytocin/Lactated Ringer's 500 ml @ 125 mls/hr Q4H IV 10/01/16 20:11 10/02/16 04:10 DC 10/02/16 00:48 Oxycodone/ Acetaminophen (Percocet (5/ 325)) 1 tab Q4H PRN PO PAIN LEVEL 4-6 10/01/16 20:30 Simethicone (Mylicon) 160 mg Q8H PRN PO DISTENSION/GAS/BLOATING 10/01/16 20:30 Lanolin (Hcm-Y-Tbsova) 1 applic BEDSIDE MEDICATION PRN TOP BEDSIDE FOR [place]ID TO NIPPLES 10/01/16 20:30 Methylergonovine Maleate (Methergine) 0.2 mg ONCE PRN IM VAGINAL BLEEDING 10/01/16 20:30 10/01/16 20:41 DC Misoprostol (Cytotec) 1,000 mcg ONCE PRN [place] VAGINAL BLEEDING 10/01/16 20:30 10/01/16 20:41 DC Ibuprofen 600 mg 600 mg Q6H PRN PO PAIN 10/01/16 20:30 10/01/16 20:41 DC Lactated Ringer's 1,000 ml @ 125 mls/hr Q8H IV 10/01/16 20:11 10/01/16 20:41 DC Oxytocin/Lactated Ringer's 500 ml @ 0 mls/hr ONCE PRN IV For Hemorrhage Management 10/01/16 20:30 10/01/16 20:41 DC Methylergonovine Maleate (Methergine) 0.2 mg ONCE PRN IM VAGINAL BLEEDING 10/01/16 20:30 10/01/16 20:41 DC Carboprost Tromethamine (Hemabate) 250 mcg ONCE PRN IM VAGINAL BLEEDING 10/01/16 20:30 10/01/16 20:41 DC Misoprostol (Cytotec) 1,000 mcg ONCE PRN [place] VAGINAL BLEEDING 10/01/16 20:30 10/01/16 20:41 DC Ibuprofen (Motrin) 600 mg Q6H PRN PO PAIN 10/01/16 20:30 10/01/16 20:41 DC Acetaminophen 500 mg 500 mg Q6H PRN PO PAIN AND OR ELEVATED TEMP 10/01/16 20:30 10/01/16 20:41 DC Lactated Ringer's 1,000 ml @ 125 mls/hr Q8H IV 10/01/16 20:11 10/02/16 15:42 Oxytocin/Lactated Ringer's 500 ml @ 0 mls/hr ONCE PRN IV For Hemorrhage Management 10/01/16 20:30 Methylergonovine Maleate (Methergine) 0.2 mg ONCE PRN IM VAGINAL BLEEDING 10/01/16 20:30 Carboprost Tromethamine (Hemabate) 250 mcg ONCE PRN IM VAGINAL BLEEDING 10/01/16 20:30 Misoprostol (Cytotec) 1,000 mcg ONCE PRN UT VAGINAL BLEEDING 10/01/16 20:30 Ibuprofen (Motrin) 600 mg Q6H PRN PO PAIN 10/01/16 20:30 Acetaminophen (Tylenol Tab) 500 mg Q6H PRN PO PAIN AND OR ELEVATED TEMP 10/01/16 20:30 Enoxaparin Sodium (Lovenox) 40 mg DAILY SC 10/02/16 09:00 MESERET DAWSON MD Oct 02, 2016 18:35
[2016-10-02 19:30] VITALS: BP 125/78; PULSE 99; RESP 18
[2016-10-02] MEDS: IBUPROFEN 600 MG TAB PO PRN (19:30)
[2016-10-02] MEDS: DEXTROSE 5%-LR 1,000 ML IV SCH ×2 (21:00→21:49)
[2016-10-03] MEDS: HYDROCODONE/APAP (5/325) TAB PO PRN ×4 (02:12→20:13)
[2016-10-03 03:45] VITALS: BP 122/82; PULSE 93; RESP 18
[2016-10-03 07:47] VITALS: BP 113/65; PULSE 92; RESP 18
[2016-10-03] MEDS: ENOXAPARIN 40 MG/0.4 ML SYG SC SCH (09:26)
--- NOTE | 2016-10-03 10:54 | PN ---
Date/Time of Note Date/Time of Note DATE: 10/03/16 TIME: 10:53 OB Subjective Subjective Subjective Post date Afebrile Vital signs stable Abdomen soft bowel sounds present no bowel movement incision dry extremity normal MESERET DAWSON MD Oct 03, 2016 10:54
[2016-10-03] MEDS ORDERED: NA PHOSPHATE/BIPHOS 133 ML ENEMA PR ONE ×2 (11:00)
[2016-10-03 16:00] VITALS: BP 121/76; PULSE 79; RESP 18
[2016-10-03] MEDS: IBUPROFEN 600 MG TAB PO PRN ×2 (18:13→23:53)
[2016-10-03 20:13] VITALS: BP 126/72; PULSE 94; RESP 18
[2016-10-04 04:39] VITALS: BP 111/75; PULSE 84; RESP 18
[2016-10-04] MEDS ORDERED: NA PHOSPHATE/BIPHOS 133 ML ENEMA PR ONE (04:45)
[2016-10-04] MEDS: ENOXAPARIN 40 MG/0.4 ML SYG SC SCH (08:28)
[2016-10-04 08:35] VITALS: BP 114/69; PULSE 78; RESP 18
[2016-10-04] MEDS: HYDROCODONE/APAP (5/325) TAB PO PRN ×2 (08:35→13:34)
--- NOTE | 2016-10-04 10:13 | PD.PPDC ---
MECHANICAL EXPERT Discharge Instruction Condition Patient Condition: Good Activity/Restrictions Activity: Normal Activity May Shower Restrictions: No Exercising No Lifting No Driving No Sexual Activity Nothing in the Vagina No [place] No Tampons, douche Wound/Drain Care Instructions Wound/Drain Care Instructions: Remove Steri Strips in 1 week Follow-up Follow-up with Physician: 4, Day/Days Provider Information: Appointment clinic in 4 days to discontinue carmen Return to clinic for [employer]PORATE [employer]OR Instructions: Fever greater than 101 Chills Worsening abdominal pain Excessive Vaginal Bleeding More than 2 pads per hour Unable to tolerate diet OB Instructions: Breast Tenderness Depression Blurried Vision Headache Surgical Instructions: Incisional Drainage Incisional Redness MESERET DAWSON MD Oct 04, 2016 10:13
--- NOTE | 2016-10-04 10:34 | DS ---
Date/Time of Note Date/Time of Note DATE: 10/04/16 TIME: 10:24 Discharge Summary Admission/Discharge Info Admit Date/Time Sep 29, 2016 at 23:26 Discharge Date/Time October 04, 2016 at 10:20 AM Discharge Diagnosis Post primary date 3 Patient Condition: Good Procedures Primary Hx of Present Illness This patient is a 36 years old 10 para 5 for with estimated date of confinement of October 14, 2016 which makes her 38 weeks and 1 day today She came this morning with contractions which apparently started about 3:00 in the morning. Membrane was ruptured artificially at 11:00 o'clock. She made progress to complete dilatation by about 4:30 PM however no further descent was made.Due to lack of progress and lack of descent of the head and considering patient request she will undergo a primary section In reviewing her past medical history she has asthma for which she has been taking inhaler Has a history of breast cyst removal 8 years ago . she is taking Lovenox for high antiphospholipidase. She also mentioned that she had a LEEP procedure on 2014, 2 years ago. Current Medications Medications (Trade) Dose Ordered Sig/Hill Route PRN Reason Start Time Stop Time Status Last Admin Dose Admin Lactated Ringer's 1,000 ml @ 125 mls/hr Q8H IV 09/30/16 00:45 10/01/16 16:03 125 MLS/HR Ampicillin 100 ml @ 100 mls/hr ONCE ONCE IV 09/30/16 01:00 09/30/16 01:59 DC 09/30/16 03:20 100 MLS/HR Ampicillin (Ampicillin 1 Gm/ NS (Pmx)) 50 ml @ 100 mls/hr Q4H IV 09/30/16 05:00 09/30/16 08:41 DC 09/30/16 07:29 100 MLS/HR Butorphanol Tartrate (Stadol) 1 mg Q2H PRN IV PAIN 09/30/16 01:00 10/01/16 04:28 1 MG Butorphanol Tartrate (Stadol) 2 mg Q2H PRN IV PAIN 09/30/16 01:00 10/01/16 06:39 2 MG Lidocaine 30 ml 30 ml ONCE PRN INJ EPISIOTOMY/TEARING 09/30/16 01:00 Oxytocin/Lactated Ringer's 500 ml @ 125 mls/hr ONCE -MAY REPEAT X1 IV 09/30/16 01:00 Oxytocin/Lactated Ringer's 500 ml @ 125 mls/hr ONCE IV 09/30/16 01:00 Ibuprofen (Motrin) 600 mg ONCE PRN PO Mild Pain (Pain Score 1-3) 09/30/16 01:00 Acetaminophen/ Codeine Phosphate 2 tab 2 tab ONCE PRN PO Moderate to Severe Pain (4-10) 09/30/16 01:00 Lactated Ringer's 1,000 ml @ 2,000 mls/hr Q30M PRN IV PRE-EPIDURAL BOLUS 09/30/16 00:49 10/01/16 08:28 2,000 MLS/HR Oxytocin/Lactated Ringer's 500 ml @ 0 mls/hr ONCE PRN IV For Hemorrhage Management 09/30/16 01:00 Methylergonovine Maleate (Methergine) 0.2 mg ONCE PRN IM VAGINAL BLEEDING 09/30/16 01:00 Carboprost Tromethamine (Hemabate) 250 mcg ONCE PRN IM VAGINAL BLEEDING 09/30/16 01:00 Misoprostol (Cytotec) 1,000 mcg ONCE PRN [place] VAGINAL BLEEDING 09/30/16 01:00 Dinoprostone 10 mg 10 mg ONCE ONCE VAG 09/30/16 15:00 09/30/16 15:01 DC 09/30/16 15:11 10 MG Oxytocin/Lactated Ringer's 500 ml @ 0 mls/hr Q0M IV 10/01/16 06:30 10/01/16 06:46 1 MLS/HR Fentanyl/ Ropivacaine 100 ml @ ud STK-MED ONCE .ROUTE 10/01/16 08:37 10/01/16 08:38 DC Naloxone HCl (Narcan) 0.1 mg Q2M PRN IV FOR RESP RATE 8 OR LESS 10/01/16 10:00 10/02/16 09:59 Hydromorphone HCl (Dilaudid) 0.2 mg Q3H PRN IV PAIN LEVEL 1-5 10/01/16 10:00 10/02/16 09:59 Hydromorphone HCl (Dilaudid) 0.4 mg Q3H PRN IV PAIN LEVEL 6-10 10/01/16 10:00 10/02/16 09:59 Diphenhydramine HCl (Benadryl) 25 mg Q6H PRN IV ITCHING 10/01/16 10:00 10/02/16 09:59 Ondansetron HCl (Zofran Inj) 4 mg Q6H PRN IV NAUSEA AND/OR VOMITING 10/01/16 10:00 10/02/16 09:59 10/01/16 17:29 4 MG Fentanyl/ Ropivacaine 100 ml EPIDURAL INFUSION EPI 10/01/16 10:00 10/01/16 16:09 100 ML Ondansetron HCl 4 mg 4 mg ONCE STAT IV 10/01/16 10:36 10/01/16 10:38 DC 10/01/16 10:41 4 MG Dextrose/Lactated Ringer's 1,000 ml @ 125 mls/hr Q8H IV 10/01/16 13:00 10/01/16 13:06 125 MLS/HR Ampicillin 100 ml @ 100 mls/hr ONCE ONCE IVPB 10/01/16 15:30 10/01/16 16:29 DC 10/01/16 15:16 100 MLS/HR Ampicillin 100 ml @ ud STK-MED ONCE .ROUTE 10/01/16 15:07 10/01/16 15:08 DC Ampicillin (Ampicillin 1 Gm/ NS (Pmx)) 50 ml @ 100 mls/hr Q4H IV 10/01/16 20:30 Citric Acid/ Sodium Citrate 30 ml 30 ml STK-MED ONCE .ROUTE 10/01/16 17:26 10/01/16 17:27 DC Cefazolin Sodium/ Dextrose 50 ml @ ud STK-MED ONCE IVPB 10/01/16 17:34 10/01/16 17:35 DC Cefazolin Sodium/ Dextrose (Ancef 2 Gm/50 ml (Pmx)) 50 ml @ 100 mls/hr ONCE PRN IVPB PRE OP 10/01/16 18:00 10/02/16 02:00 Hospital Course Satisfactory uneventful Home Meds Active Scripts Loratadine* (Claritin*) 10 Mg Capsule, 10 MG PO DAILY for 30 Days, CAP Prov:HARSH HARDENO M. 08/28/16 Multivit/Min/Fol Ac/Iron/Pren* ( S*) 1 Tab Tab, 1 TAB PO DAILY for 30 Days, TAB Prov:SANDRA HARDEN M. 08/28/16 Albuterol Sulfate* (Ventolin HFA*) 18 Gm Hfa.aer.ad, 2 PUFF INHALATION Q4H, #1 INHALER 1 Refill Prov:SANDRA HARDEN 08/28/16 Reported Medications Albuterol Sulfate* (Albuterol Sulfate* Neb) 0.083%-3 Ml Neb, 2.5 MG NEB Q4 Y for WHEEZING AND SOB, #30 VIAL 08/25/16 Aspirin* (Aspirin* EC) 81 Mg Tablet.dr, 81 MG PO DAILY, TAB 08/21/16 Enoxaparin Sodium* (Lovenox*) 40 Mg/0.4 Ml Syringe, 40 MG SC DAILY, SYR 08/21/16 Follow-up Plan Advised to continue aspirin and Lovenox advised make an appointment with the clinic in 4 days for check and decision how long to continue with Lovenox, may require 6 weeks full dose treatment, hospitalist consultation requested prior to patient's discharge to receive instructions regarding medications Primary Care Provider [facility] Time spent on discharge: < 30 minutes MESERET DAWSON MD Oct 04, 2016 10:33
[2016-10-04] MEDS: IBUPROFEN 600 MG TAB PO PRN (11:44)
--- NOTE | 2016-10-04 14:38 | CONS ---
Date/Time of Note Date/Time of Note DATE: 10/04/16 TIME: 14:06 Assessment/Plan Assessment/Plan Chief Complaint/Hosp Course 36 yo female with APS with history of 2 miscarriages admitted for of her 6th child which was uncomplicated. At this point we need to retest for antiphospholipid syndrome to see if the test is still positive. However, even if her A2OXZmA is still slightly elevated, given that she does not have history of arterial or venous thrombosis, she would only need 6 weeks of anticoagulation post . Of note in most cases of APS with an elevated B2GPA the IgA level is > 40 whereas in this case it is only 25 which makes the likelihood of a true APS low. She does not need life long anticoagulation -recheck for APS -cont Lovenox 6 weeks post -I can follow up the patient in our clinic to review the results of theses tests Problems: Consultation Date/Type/Reason Admit Date/Time October 01, 2016 Date of Consultation: Oct 04, 2016 Type of Consultation: Hematology Reason for Consultation antiphospholipid syndrome Referring Provider: BRANDON HOYT of Present Illness 36 years old admitted for of her 6th child. Pt had 5 children prior all vaginally and without complication. She had 2 miscarriages prior to the of this child at 12 weeks and 9 weeks. Pt states she has never had an episode of venous or arterial thrombosis before. In 01/2016 when she was just a few weeks , given her history of miscarriages she was tested for antiphospholipid syndrome. Pt was found with a slightly elevated B2Gp IgA at 25 (normal < 20) and was diagnosed with antiphospholipid syndrome. She was then started on Aspirin and Lovenox. Pt has since given on 7. which was uncomplicated. We have been consulted on post management of anticoagulation . Eyes: No discharge, No no complaints, No other, No pain, No redness, No visual change ENT: No bleeding, No congestion, No discharge, No dysphagia, No no complaints, No other, No pain, No sore throat Respiratory: No cough, No no complaints, No other, No pain, No pleuritic pain, No shortness of breath, No sputum, No wheezing Cardiovascular: No chest pain, No edema, No lightheadedness, No no complaints, No orthopenea, No other, No palpitations, No paroxysmal nocturnal dyspnea Gastrointestinal: No blood, No constipation, No decreased appetite, No diarrhea , No flatus, No nausea, No no complaints, No other, No pain, No passing stool, No vomiting Genitourinary: other (Cervix is completely dilated head at -1-2 station), No bleeding, No discharge, No dysuria, No flank pain, No hematuria, No no complaints Musculoskeletal: other (Knee-jerk reflexes normal), No back pain, No bone/joint pain, No neck pain, No no complaints, No restricted range of motion, No swelling Skin: No bruising, No erythema, No laceration, No no complaints, No other, No pruritis, No rash, No skin lesions Neurologic: No confusion, No dizziness, No focal-weakness, No headache, No no complaints, No other, No seizure, No syncope Past Medical History asthma 2 miscarriages at 12 weeks and 9 weeks Past Surgical History Past Surgical Hx: no surgical history Family History Significant Family History: no pertinent family hx Social History Alcohol Use: none Smoking Status: Never smoker Drug Use: none Exam/Review of Systems Vital Signs Vitals Vital Signs Date Time Temp Pulse Resp B/P Pulse Ox O2 Delivery O2 Flow Rate FiO2 10/04/16 08:35 98.0 78 18 114/69 Room Air 10/02/16 17:43 96 21 Exam Constitutional: alert, oriented Psych: no complaints Head: atraumatic, normocephalic Eyes: nl conjunctiva ENMT: nl external ears & nose Neck: non-tender, supple Respiratory: clear to auscultation, normal air movement Cardiovascular: regular rate and rhythm Gastrointestinal: soft Musculoskeletal: nl extremities to inspection, nl gait and stance Extremities: normal pulses Results Result Diagram: 10/02/16 0635 09/30/16 0114 Medications Medications Current Medications Oxytocin/Lactated Ringer's 500 ml @ 0 mls/hr ONCE PRN IV For Hemorrhage Management; Start 09/30/16 at 01:00 Oxycodone/ Acetaminophen (Percocet (5/ 325)) 1 tab Q4H PRN PO PAIN LEVEL 4-6 Last administered on 10/04/16 04:39; Admin Dose 1 TAB; Start 10/01/16 at 20:30 Simethicone 160 mg 160 mg Q8H PRN PO DISTENSION/GAS/BLOATING Last administered on 10/03/16 20:12; Admin Dose 160 MG; Start 10/01/16 at 20:30 Oxytocin/Lactated Ringer's 500 ml @ 0 mls/hr ONCE PRN IV For Hemorrhage Management; Start 10/01/16 at 20:30 Methylergonovine Maleate (Methergine) 0.2 mg ONCE PRN IM VAGINAL BLEEDING; Start 10/01/16 at 20:30 Carboprost Tromethamine (Hemabate) 250 mcg ONCE PRN IM VAGINAL BLEEDING; Start 10/01/16 at 20:30 Misoprostol (Cytotec) 1,000 mcg ONCE PRN [place] VAGINAL BLEEDING; Start 10/01/16 at 20:30 Ibuprofen (Motrin) 600 mg Q6H PRN PO PAIN Last administered on 10/04/16 11:44; Admin Dose 600 MG; Start 10/01/16 at 20:30 Acetaminophen (Tylenol Tab) 500 mg Q6H PRN PO PAIN AND OR ELEVATED TEMP; Start 10/01/16 at 20:30 Enoxaparin Sodium (Lovenox) 40 mg DAILY SC Last administered on 10/04/16 08:28 ; Admin Dose 40 MG; Start 10/02/16 at 09:00 Acetaminophen/ Hydrocodone Bitart ([place] (5/325)) 1 tab Q4H PRN PO PAIN Last administered on 10/04/16 13:34; Admin Dose 1 TAB; Start 10/02/16 at 23:00 OCTAVIO DIETRICH M.D. Oct 04, 2016 14:16
--- NOTE | 2016-10-04 15:54 | CONS ---
Date/Time of Note Date/Time of Note DATE: 10/04/16 TIME: 15:47 Assessment/Plan Assessment/Plan Chief Complaint/Hosp Course 1. Reported history of antiphospholipid syndrome Of note IgA level is typically> 40 true antiphospholipid syndrome whereas in this case it is only 25 which makes the likelihood of a true APS low Hematology consultation appreciated, recommendation is for 6 weeks of Lovenox and follow-up with hematology in clinic [facility] for DC from a medicine standpoint with 6 weeks of Lovenox and to follow up with hematology in clinic 2. Asthma: Stable Problems: Consultation Date/Type/Reason Admit Date/Time October 01, 2016 Date of Consultation: Oct 04, 2016 Type of Consultation: Internal medicine Reason for Consultation Antiphospholipid syndrome Hx of Present Illness Patient is a 36-year-old female asthma and is now status post . Patient has history of 2 miscarriages she was tested for antiphospholipid syndrome during this most recent and her antibody levels did come back slightly positive. Patient was started on aspirin and Lovenox during her , patient has no reported history of blood clots. Patient has been evaluated by hematology and recommendation is for 6 weeks of Lovenox and patient can follow up with hematology as an outpatient. Constitutional: improved, no complaints Eyes: No discharge, No no complaints, No other, No pain, No redness, No visual change ENT: No bleeding, No congestion, No discharge, No dysphagia, No no complaints, No other, No pain, No sore throat Respiratory: No cough, No no complaints, No other, No pain, No pleuritic pain, No shortness of breath, No sputum, No wheezing Cardiovascular: No chest pain, No edema, No lightheadedness, No no complaints, No orthopenea, No other, No palpitations, No paroxysmal nocturnal dyspnea Gastrointestinal: No blood, No constipation, No decreased appetite, No diarrhea , No flatus, No nausea, No no complaints, No other, No pain, No passing stool, No vomiting Genitourinary: other (Cervix is completely dilated head at -1-2 station), No bleeding, No discharge, No dysuria, No flank pain, No hematuria, No no complaints Musculoskeletal: other (Knee-jerk reflexes normal), No back pain, No bone/joint pain, No neck pain, No no complaints, No restricted range of motion, No swelling Skin: No bruising, No erythema, No laceration, No no complaints, No other, No pruritis, No rash, No skin lesions Neurologic: No confusion, No dizziness, No focal-weakness, No headache, No no complaints, No other, No seizure, No syncope Endocrine: no complaints Lymphatic: no complaints Psychological: no complaints Immunologic: no complaints Past Surgical History Past Surgical Hx: other Family History Significant Family History: diabetes Social History Alcohol Use: none Smoking Status: Former smoker Drug Use: none Exam/Review of Systems Vital Signs Vitals Vital Signs Date Time Temp Pulse Resp B/P Pulse Ox O2 Delivery O2 Flow Rate FiO2 10/04/16 08:35 98.0 78 18 114/69 Room Air 10/02/16 17:43 96 21 Exam Constitutional: alert, oriented Head: normocephalic Respiratory: clear to auscultation Cardiovascular: regular rate and rhythm Gastrointestinal: soft, No distended Extremities: edema Results Result Diagram: 10/02/16 0635 09/30/16 0114 Medications Medications Current Medications Oxytocin/Lactated Ringer's 500 ml @ 0 mls/hr ONCE PRN IV For Hemorrhage Management; Start 09/30/16 at 01:00 Oxycodone/ Acetaminophen (Percocet (5/ 325)) 1 tab Q4H PRN PO PAIN LEVEL 4-6 Last administered on 10/04/16 04:39; Admin Dose 1 TAB; Start 10/01/16 at 20:30 Simethicone 160 mg 160 mg Q8H PRN PO DISTENSION/GAS/BLOATING Last administered on 10/03/16 20:12; Admin Dose 160 MG; Start 10/01/16 at 20:30 Oxytocin/Lactated Ringer's 500 ml @ 0 mls/hr ONCE PRN IV For Hemorrhage Management; Start 10/01/16 at 20:30 Methylergonovine Maleate (Methergine) 0.2 mg ONCE PRN IM VAGINAL BLEEDING; Start 10/01/16 at 20:30 Carboprost Tromethamine (Hemabate) 250 mcg ONCE PRN IM VAGINAL BLEEDING; Start 10/01/16 at 20:30 Misoprostol (Cytotec) 1,000 mcg ONCE PRN [place] VAGINAL BLEEDING; Start 10/01/16 at 20:30 Ibuprofen (Motrin) 600 mg Q6H PRN PO PAIN Last administered on 10/04/16 11:44; Admin Dose 600 MG; Start 10/01/16 at 20:30 Acetaminophen (Tylenol Tab) 500 mg Q6H PRN PO PAIN AND OR ELEVATED TEMP; Start 10/01/16 at 20:30 Enoxaparin Sodium (Lovenox) 40 mg DAILY SC Last administered on 10/04/16 08:28 ; Admin Dose 40 MG; Start 10/02/16 at 09:00 Acetaminophen/ Hydrocodone Bitart ([place] (5/325)) 1 tab Q4H PRN PO PAIN Last administered on 10/04/16 13:34; Admin Dose 1 TAB; Start 10/02/16 at 23:00 BRANDON HOYT Oct 04, 2016 15:54
[2016-10-08 11:28] LABS: B2 GLYCOPROTEIN I AB (IGA) 30 SAU (< OR = 20); B2 GLYCOPROTEIN I AB (IGG) <9 SGU (< OR = 20); B2 GLYCOPROTEIN I AB (IGM) <9 SMU (< OR = 20)
== END 2016-10-04 18:01 | disposition home or self-care (01) | DRG 765 ==
LOC: OBT 22:02 → L-D 22:03 → OBT 23:26 → L-D 10-01 18:34 → PP1 10-01 22:26
PROVIDERS: ADMIT Obstetrics & Gynecology; ATTEND Obstetrics & Gynecology
PROC: 10D00Z1 Extraction of Products of Conception, Low, Open Approach (ICD-10-PCS; principal; 2016-10-01 19:15)
DX: O32.4XX0 Maternal care for high head at term, not applicable or unspecified (principal); O41.03X0 Oligohydramnios, third trimester, not applicable or unspecified; D68.61 Antiphospholipid syndrome; O99.113 Other diseases of the blood and blood-forming organs and certain disorders involving the immune mechanism complicating pregnancy, third trimester; Z3A.38 38 weeks gestation of pregnancy; Z37.0 Single live birth; Z79.02 Long term (current) use of antithrombotics/antiplatelets
CPT/HCPCS: 36415; 62319; 76815; 76818; 80053; 80307; 81003; 85025; 85610; 85613; 85730; 86146; 86147; 86592; 86703; 86762; 86900; 86901; 87086; 87340; 94760; 96360; 99464; G0463; J0290; J0595; J0690; J1170; J1650; J2210; J2250; J2270; J2274; J2405; J2590; J2765; J3010; J7120; J7121

== ENCOUNTER 2017-03-04 16:15 | Emergency (ER) | payer MEDICAID ==
[~2017-03-04] VITALS: Wt 75.1 kg
[2017-03-04] MEDS ORDERED: PRED20TA PO (18:59)
--- NOTE | 2017-03-04 19:02 | ERD ---
ER Documentation Chief Complaint Chief Complaint COUGH, CONGESTION HPI 36-year-old female presents with cough and congestion for the past week. She has been taking Tylenol. She states she has had a fever at home. No nausea or vomiting. She is concerned because she is breast-feeding wants to make sure there will be no issues with breast-feeding. ROS All systems reviewed and are negative except as per history of present illness. Medications Home Meds Active Scripts Prednisone* (Prednisone*) 20 Mg Tab, 40 MG PO DAILY for 4 Days, TAB Prov:LUKE DON PA-C 03/04/17 Loratadine* (Claritin*) 10 Mg Capsule, 10 MG PO DAILY for 30 Days, CAP Prov:SANDRA HARDEN . 08/28/16 Multivit/Min/Fol Ac/Iron/Pren* ( S*) 1 Tab Tab, 1 TAB PO DAILY for 30 Days, TAB Prov:SANDRA HARDEN . 08/28/16 Albuterol Sulfate* (Ventolin HFA*) 18 Gm Hfa.aer.ad, 2 PUFF INHALATION Q4H, #1 INHALER 1 Refill Prov:SANDRA HARDEN. 08/28/16 Reported Medications Albuterol Sulfate* (Albuterol Sulfate* Neb) 0.083%-3 Ml Neb, 2.5 MG NEB Q4 Y for WHEEZING AND SOB, #30 VIAL 08/25/16 Aspirin* (Aspirin* EC) 81 Mg Tablet.dr, 81 MG PO DAILY, TAB 08/21/16 Enoxaparin Sodium* (Lovenox*) 40 Mg/0.4 Ml Syringe, 40 MG SC DAILY, SYR 08/21/16 Allergies Allergies: Coded Allergies: No Known Allergies (Verified Allergy, Mild, 09/29/16) PMhx/Soc History of Surgery: Yes ("ball" removed from armpit area, "ball" removed from uterus) Anesthesia Reaction: No Hx Neurological Disorder: No Hx Respiratory Disorders: Yes (Asthma for 6 years) Hx Cardiac Disorders: No Hx Psychiatric Problems: Yes (Depression) Hx Miscellaneous Medical Probl: No Hx Alcohol Use: Yes (socially) Hx Substance Use: No Hx Tobacco Use: Yes FmHx Family History: No diabetes Physical Exam Vitals Vital Signs Date Time Temp Pulse Resp B/P Pulse Ox O2 Delivery O2 Flow Rate FiO2 03/04/17 16:55 97.7 68 17 120/75 98 Physical Exam INITIAL VITAL SIGNS: Reviewed by me GENERAL: Awake, alert and oriented x 4, well appearing, nontoxic, speaking in full sentences. No acute distress HEAD: Atraumatic NECK: Supple. No masses. Full range of motion. No meningismus. No midline tenderness. NOSE: Normal nose. THROAT: No tonilar erythema or edema. No exudates. Uvula midline. No kissing tonsils. RESPIRATORY: Clear to auscultation bilaterally. Symmetric chest wall rise. No wheezing or rales. No accessory muscle use. CV: Regular rate and rhythm. No murmurs, rubs, or gallops. Procedures/MDM Patient presents with URI. She is afebrile well-appearing with a normal physical exam. She is discharged with a short course of prednisone 40 mg. Patient counseled regarding my diagnostic impression and care plan. Prior to discharge all questions answered. Pt agrees with treatment plan and understands strict return precautions. Pt is instructed to follow up with primary care provider within 24-48 hours. Precautionary instructions provided including instructions to return to the ER if not improving or for any worsening or changing symptoms or concerns. Departure Diagnosis: Primary Impression: Upper respiratory infection Condition: Stable Patient Instructions: Preventing Common Respiratory Infections Additional Instructions: Llame al doctor RALPH y iain megan ORIN PARA DENTRO DE 1-2 FERNANDEZ.Dgale a la secretaria que nosotros le instruimos hacer esta orin.Avise o llame si machado condicin se empeora antes de la orin. Regresa aqui si peor o no mejor. LUKE DON PA-C Mar 04, 2017 19:02
[2017-03-04 19:44] VITALS: BP 128/76; PULSE 95; RESP 20; TEMP 98.6
== END 2017-03-04 19:46 | disposition home or self-care (01) ==
LOC: FTE 16:15
DX: J06.9 Acute upper respiratory infection, unspecified (principal); F17.210 Nicotine dependence, cigarettes, uncomplicated; J45.909 Unspecified asthma, uncomplicated; Z79.82 Long term (current) use of aspirin
CPT/HCPCS: 99283